=== PATIENT | male | born 2000 | race Caucasian/White ===

== ENCOUNTER 2020-03-26 07:42 | Inpatient (IN) | payer OTHER ==
[2020-03-26 09:04] VITALS: BMI 22.0
[2020-03-26] MEDS ORDERED: Iopamidol-370 76% 500 ML 1 ML ONE (09:07)
[2020-03-26] MEDS ORDERED: Iopamidol 370 76% 50 ML VIAL FS ONE (09:07)
[2020-03-26] MEDS ORDERED: Ondansetron PF 4 MG/2 ML Vial IVP PRN (09:19)
[2020-03-26] MEDS: Fentanyl 100 MCG/2 ML VIAL SLOW IVP PRN ×2 (09:35→10:56)
[2020-03-26] MEDS ORDERED: FLU VACC QS2020-21(6MOS UP)/PF 60 MCG/0.5 ML SYRINGE IM ONE (09:45)
--- NOTE | 2020-03-26 11:29 | HP ---
CHIEF COMPLAINT ON ADMISSION: Acute pancreatitis. HISTORY OF PRESENT ILLNESS: The patient is a 19-year-old male, who was in his usual state of health Thursday, such that he went out and partied apparently hard on Thursday night, but did not drink excessively and he is adamant about that. He woke up Thursday morning; however, having intense mid epigastric pain associated with nausea and vomiting. He vomited numerous times before going to [facility], where he was evaluated with a lipase of 970, noted to have acute pancreatitis. CT scan of his abdomen was done at that time and again confirmed that diagnosis. Dr. Coon was called in to take care of the patient from observation status. IV fluids and pain management were given to the patient overnight. However, he failed to show significant improvement and in fact, his lipase on the day of admission had elevated to over 1600. His pain had increased. His abdominal exam had gone from simply mid epigastric with firmness diffusely to distention with diffuse guarding and pain. He continued to have severe nausea as well and it was evident that he needed to be hospitalized. At this point, he was transferred to [facility] in [place] for pain management, IV fluid resuscitation, GI consultation, and serial re-evaluation. PAST MEDICAL HISTORY: Significant for several fractures in his collarbone, wrist, and toe. He has had no other major hospitalizations. He has had no surgery. Psychiatrically, he has been under some stress and depression. His current medication is Prozac 80 mg a day. SOCIAL HISTORY: He is not . He has never smoked. Drinks socially. Does not use illicit drugs. CURRENT MEDICATIONS: Prozac 80 mg p.o. daily. ALLERGIES: NO KNOWN DRUG ALLERGIES. REVIEW OF SYSTEMS: CONSTITUTION: When I first see him, he was weak and lethargic, but denied fever, chills, or diarrhea. HEENT: Denies sores, ulcers, or drainage from eyes, ears, nose, or throat. CHEST: Denies shortness of breath or cough. CARDIOVASCULAR: He has had some palpitations, but denies chest pain. ABDOMEN: Extreme pain and tender above his navel. The pain radiates into his back. He has had nausea and vomiting, but denies diarrhea. : The patient denies blood in urine or stool or painful defecation. EXTREMITIES: Denies any pain in any of his arms or legs. MUSCULOSKELETAL SYSTEM: He is generally weak; however. SKIN: No new rashes or lesions. NEUROLOGIC: Feel stable without worsening of his anxiety or depression. PHYSICAL EXAMINATION: At the time of admission; VITAL SIGNS: Blood pressure 140/95, pulse 150, and temperature 98.4. Weight 145 pounds. O2 saturation 98 on room air. GENERAL: This is a pale, lethargic, weak, and nauseated male, alert, responsive, and complaining of pain. HEENT: Normocephalic and atraumatic. Pupils are equal, round, and reactive to light. Extraocular muscles are intact. TMs and nares are clear. Pharynx is mildly dry. NECK: Supple. No mass. CHEST: Clear to auscultation. HEART: Regular rate and rhythm. Tachycardic. ABDOMEN: Diffusely tender, worse mid epigastrically. Distention is noted with diminished bowel sounds and guarding. : Deferred. EXTREMITIES: Without clubbing, cyanosis, or edema. Normal range of motion present. Symmetrical muscular tone development noted. SKIN: No new rashes or lesions. He is very pale. NEUROLOGIC: Cranial nerves are intact. Unable to test gait and cerebral function at this time. Sensory exam is grossly intact. Mental status is at baseline and answers questions appropriately and clearly. Thought are logical, goal-directed, and appropriate. LABORATORY DATA: Lab work shows WBCs 9.6, hemoglobin 15.8, hematocrit 44.9, and platelets at 349. LFTs initially showed albumin 41, ALP 72, ALT at 40, amylase at 181, SGOT 68, and GGT initially at 160 and it has come down to 80. UA is completely unremarkable. Lipid panel; cholesterol 172, HDL 76, triglycerides 89, and LDL 78. Lipase initially was 970 and followup lipase greater than 1600. Electrolytes; sodium 139, potassium 3.6, chloride 103, calcium 1.1, glucose 138, and creatinine 0.9. The calcium was from an I-STAT and we will repeat that, normal on the I-STAT is 1.[address] obtained of the abdomen initially showed acute pancreatitis, but otherwise it is unremarkable. There was no fluid collection to suggest a pseudocyst. Ultrasound of the abdomen suggested possible sludge in the gallbladder lumen, but no enlargement of common bile duct or signs of blockage. ASSESSMENT ON ADMISSION: 1. Acute pancreatitis - the etiology possibly due to high-dose Prozac. 2. Dehydration, improving. 3. Major depression. PLAN: The plan will be continued IV fluid resuscitation, pain management with frequent fentanyl, antiemetics such as Zofran. Repeat CAT scan of the abdomen since his condition has worsened since presentation. GI consultation with [facility] and serial re-evaluation. Job ID: [id number]
--- NOTE | 2020-03-26 11:32 | CT ---
CT Abdomen Pelvis W WO con History: Pancreatitis Comparison: None. Findings: Small bilateral pleural effusions. Reflux of contrast into the esophagus. There is vicarious contrast within the gallbladder. Diffuse hepatic steatosis. Aortic contour is nonaneurysmal. Extensive peripancreatic inflammatory stranding with small foci of intraparenchymal nonenhancement co ncerning for necrosis. No peripherally enhancing collection. Adrenal glands are unremarkable. No hydronephrosis. No abnormal enhancing mass of the kidneys. No dilated loops of large or small bowel. The appendix is felt to be visualized and appears normal. No retroperitoneal periaortic adenopathy. No acute osseous abnormality. No pseudoaneurysm is appreciated. No active contrast extravasation. Small adherent thrombus along the anterior splenic vein axial image 60 series 4 measures 8 mm in size and is nonocclusive. There is a second peripheral thrombus also within the splenic vein measuring up to 7 mm in size. No acute sple paras infarction. Impression: 1. Acute pancreatitis with small foci of nonenhancement within the pancreatic parenchyma concerning f or necrosis along with peripancreatic necrosis. 2. Multiple small mural thrombi of the anterior wall splenic vein as described. These are nonocclusiv e. 3. Normal appendix. 4. Diffuse hepatic steatosis. 5. Reflux of enteric contrast within the distal esophagus likely sequelae of reactive gastroparesis.
[2020-03-26] MEDS ORDERED: Fentanyl 100 MCG/2 ML VIAL SLOW IVP SCH (12:15)
[2020-03-26] MEDS ORDERED: diphenhydrAMINE 25 MG CAP PO PRN (12:45)
[2020-03-26] MEDS ORDERED: Promethazine HCl 25 MG/ML VIAL IM PRN (12:45)
[2020-03-26] MEDS ORDERED: Naloxone HCl 0.4 mg/ml Vial IV PRN (12:45)
[2020-03-26] MEDS ORDERED: diphenhydrAMINE 50 MG/ML VIAL IM/IV PRN (12:45)
[2020-03-26] MEDS ORDERED: Zolpidem Tartrate 5 MG TAB PO PRN (12:45)
[2020-03-26] MEDS: fentaNYL Citrate/PF 2,000 MCG in Sodium Chloride 0.9% 60 ML IV PRN (13:18)
[2020-03-26] MEDS: Ketorolac Tromethamine 30 MG/ML VIAL IVP SCH ×2 (13:29→17:18)
[2020-03-26] MEDS ORDERED: Heparin 1,000 UNITS/ML VIAL ONE (14:05)
[2020-03-26 17:31] LABS: Anion Gap 11 mmol/L (10-20); BUN (Urea Nitrogen) 10 mg/dL (8.9-20.6); Calc. Creatinine Clearance 122 mL/min (70-130); Calcium 7.9 mg/dL (7.8-10.44); Carbon Dioxide 25 mmol/L (22-29); Chloride 103 mmol/L (98-107); Estimated GFR-MDRD Greater than 90; Glucose 135 mg/dL (70-105); Magnesium 2.6 mg/dL (1.6-2.6); Potassium 4.3 mmol/L (3.5-5.1); Sodium 135 mmol/L (136-145)
[2020-03-26] MEDS: Sodium Chloride 0.9% 1,000 ML IV SCH ×2 (18:39→21:19)
[2020-03-26] MEDS: Ondansetron PF 4 MG/2 ML Vial IVP PRN (20:30)
--- NOTE | 2020-03-26 22:36 | CON ---
DATE OF CONSULTATION: 03/26/2020 REASON FOR CONSULTATION: Acute pancreatitis. CONSULTING PROVIDER: Corey Coon MD HISTORY OF PRESENT ILLNESS: The patient is a 19-year-old male with past medical history of anxiety and depression, presenting with the complaints of acute onset of mid epigastric abdominal pain. He states that he was in his usual state of health until Thursday evening when he went out with his friends and they consumed an increased amount of alcohol when compared to his normal consumption (normal consumption as one drink every 2 to 3 days). During that evening Thursday night, the patient consumed approximately 4 mixed drinks with no immediate complications afterwards. However, early the next morning, the patient had acute onset of mid epigastric abdominal pain characterized as a severe aching type sensation, would radiate to the generalized abdomen and to his mid back with waxing/waning severity, and reached a severity of 10/10. The pain was worse with increased physical activity/movement, deep inspiration, vomiting, eating or drinking and better with the administration of narcotic pain medications when admitted to the hospital. This increased abdominal pain was also associated with increased nausea, vomiting, hematemesis with blood tinged fluid with repeated retching and increased abdominal distention. However, the patient denied any fevers, chills, melena, hematochezia, dysphagia, or recent weight loss. With the severity of this pain he felt, initially prompted him to seek healthcare assistance at the [facility] where the patient had a CT scan and elevated lipase consistent with the diagnosis of acute pancreatitis. However, after approximately 24 hours of IV fluids, the patient had worsening of his abdominal pain and was ultimately transferred to [facility] for further evaluation. On admission here to the hospital, he had a repeat CT scan, which showed extensive peripancreatic inflammation with small foci of intraparenchymal nonenhancement consistent with necrosis. However, with pain medications he has received here in the hospital and with continued IV fluid administration, he states that he is doing better today, but still has fairly severe abdominal pain. REVIEW OF SYSTEMS: A 10-category review of systems was obtained with all responses negative except for the pertinent positives as listed in HPI. PAST MEDICAL HISTORY: As per HPI. PAST SURGICAL HISTORY: Several clavicular fractures, wrist fracture, toe fracture. SOCIAL HISTORY: Denies any tobacco or illicit drug use, but does drink approximately one drink every 2 to 3 days with increased amounts on the weekends. OUTPATIENT MEDICATIONS: Prozac 80 mg daily. ALLERGIES: NO KNOWN DRUG ALLERGIES. PHYSICAL EXAMINATION: VITAL SIGNS: Temperature 98.2, pulse 126, blood pressure 136/88, respiratory rate 18, saturating 94% on room air. GENERAL: The patient was lying in bed, in no acute distress. Alert and oriented x4. HEENT: Normocephalic, atraumatic. No scleral icterus noted. NECK: Supple. No JVD. CARDIOVASCULAR: Tachycardic rate, but regular rhythm with no discernible murmurs, gallops, or rubs. RESPIRATORY: Clear to auscultation bilaterally with no discernible wheezes or rales. ABDOMEN: Hypoactive bowel sounds. Positive guarding. Mild increased abdominal distention with tenderness to palpation in all abdominal quadrants especially the mid epigastric and periumbilical regions with only light palpation. EXTREMITIES: No cyanosis, clubbing, or edema. LABORATORY DATA: CBC with a white blood cell count of 9.6, hemoglobin 15.8, hematocrit 44.9, platelets 349. Chemistry with a sodium 139, potassium 3.6, chloride 103, creatinine 0.9, glucose 138, AST 68, ALT 40, alkaline phosphatase 72, lipase 1647. IMAGING DATA: CT scan of the abdomen and pelvis was obtained on March 26, 2020, which showed small bilateral pleural effusions as well as the reflux of liquid into the distal esophagus consistent with GERD. Diffuse hepatic steatosis was also seen with extensive peripancreatic inflammation and small foci of intraparenchymal nonenhancement consistent with necrosis. A small adherent thrombus was also seen in the splenic vein, but was not extending into the portal vein or superior mesenteric vein. ASSESSMENT AND PLAN: The patient is a 19-year-old male with past medical history of anxiety/depression, presenting with acute complicated pancreatitis. Acute complicated pancreatitis/severe pancreatitis. The patient is presenting with acute onset of increased mid epigastric abdominal pain characterized as a severe aching type sensation and reaching a severity of 10/10. On initial evaluation at the [facility], he was noted to have imaging findings consistent with pancreatitis in addition to an elevated lipase that was also echoed by both an elevated lipase and a CT scan here. However, the patient does exhibit small areas of focal necrosis within the pancreas concerning for nonresponse to either conservative management or the fluid administration was not aggressive enough in order to infect circulating inflammatory cytokines; however, there was no evidence of infection at this time (usually a later development at around 7 to 10 days). At this time, the most likely etiology for his acute pancreatitis would be the binge drinking episode that he engaged in this Thursday night. Given the fact that his lipid panel is normal and he does not have any elevated LFTs consistent with obstruction or gallstone pancreatitis, medication pancreatitis can also be ruled out given that his only medication is Prozac, which is not known to cause acute pancreatitis and as well as the fact that the medication-induced pancreatitis is extremely rare (less than 5% of cases). RECOMMENDATIONS: 1. Would continue with aggressive IV fluid administration at approximately 200 mL/h for the first 8 hours then decrease to 150 mL/h for the next 16 hours. 2. Pain control per primary team, but I agree with placing the patient on a LIBRARY CIRCULATION ASSISTANT pump. 3. Would consider starting the patient on a clear liquid diet tomorrow if his pain is under control. 4. No anticoagulation is indicated given his splenic vein thrombosis unless it is extending into the portal system or the superior mesenteric vein. 5. If the patient begins to develop fever in the next 24 to 48 hours, it is most likely not because of infected pancreatic necrosis, which is usually seen 7 to 10 days after onset of symptoms. We will continue to follow. Please call with any questions. Job ID: [id number]
[2020-03-27] MEDS: Ketorolac Tromethamine 30 MG/ML VIAL IVP SCH ×5 (00:53→23:05)
[2020-03-27] MEDS: Sodium Chloride 0.9% 1,000 ML IV SCH ×4 (04:10→23:11)
[2020-03-27 05:56] LABS: Mean Corpuscular HGB CONC 33.9 g/dL (32.0-36.0); Mean Corpuscular Hemoglobin 30.8 pg (27.0-31.0); Mean Corpuscular Volume 90.9 fL (78.0-98.0); Mean Platelet Volume 7.9 fL (7.4-10.4); Platelet Count 213 thou/uL (130-400); RBC Distribution Width 12.6 % (11.5-14.5); Red Blood Cell (RBC) Count 4.85 mill/uL (4.70-6.10); White Blood Cell (WBC) Count 13.5 thou/uL (4.8-10.8)
[2020-03-27 06:12] LABS: Anion Gap 12 mmol/L (10-20); BUN (Urea Nitrogen) 11 mg/dL (8.9-20.6); Calc. Creatinine Clearance 133 mL/min (70-130); Calcium 7.6 mg/dL (7.8-10.44); Carbon Dioxide 24 mmol/L (22-29); Chloride 102 mmol/L (98-107); Estimated GFR-MDRD Greater than 90; Glucose 102 mg/dL (70-105); Lipase 959 U/L (8-78); Sodium 134 mmol/L (136-145)
[2020-03-27] MEDS: Ondansetron PF 4 MG/2 ML Vial IVP PRN (06:16)
[2020-03-27 06:56] LABS: Band 32 % (5-11); Lymphocytes 2 % (21-51); MDiff Complete? YES; Monocytes 2 % (0-10); Neutrophil 63 % (42-75); Reactive Lymphocytes 1 % (0-10)
--- NOTE | 2020-03-27 14:05 | PRG ---
DATE OF SERVICE: 03/27/2020 SUBJECTIVE: Jose reports he is very slowly feeling better, but he still has significant constant epigastric pain. He has been taking sips of water and [place] and every time he does the pain gets a lot worse and he gets more nauseated. No vomiting. No bowel movement. OBJECTIVE: VITAL SIGNS: Temperature 98.8, pulse down to 91, blood pressure 113/74, 92% oxygen saturation on room air. GENERAL: Sitting up in chair, in mild distress from abdominal pain. HEART: Regular rate and rhythm. LUNGS: Clear to auscultation bilaterally. ABDOMEN: Bowel sounds absent. Soft. Tenderness to palpation in the epigastrium, but no guarding, rebound tenderness. EXTREMITIES: No peripheral edema. LABORATORY STUDIES: WBC is 13.5, hemoglobin 15.0, hematocrit 44.1, platelets 213. Sodium 134, potassium 4.0, BUN 11, creatinine down to 0.82, glucose 102, amylase down to 307, lipase down to 959. ASSESSMENT/PLAN: 1. Acute pancreatitis secondary to alcohol, with several foci of pancreatic necrosis per CT scan yesterday. 2. Abdominal pain secondary to pancreatitis. I advised the patient that he needs to quit drinking water and [place] and be more strict with his n.p.o. status. Labs are essentially stable from yesterday, but would like to see the hematocrit go down. He has been treated aggressively with intravenous fluid resuscitation over the past day, and would continue with intravenous normal saline at a rate of 150 mL/h for at least the next 24 hours. Pain is better controlled now. 3. Gastrointestinal will continue to follow. Please call anytime with questions or concerns. Job ID: [id number]
[2020-03-27] MEDS: fentaNYL Citrate/PF 2,000 MCG in Sodium Chloride 0.9% 60 ML IV PRN (14:48)
--- NOTE | 2020-03-27 16:44 | RAD ---
XR Chest 1 View Portable History: Necrotic pancreatitis Comparison: None. Findings: Abnormal bilateral pleural effusions and bibasilar atelectasis. No pneumothorax. Heart size is normal. No acute osseous abnormality. Impression: Moderate pleural effusions and bibasilar atelectasis.
[2020-03-28] MEDS: Sodium Chloride 0.9% 1,000 ML IV SCH ×4 (05:17→22:39)
[2020-03-28] MEDS: Ketorolac Tromethamine 30 MG/ML VIAL IVP SCH (05:17)
[2020-03-28 07:14] LABS: Hemoglobin 12.8 g/dL (14.0-18.0); Mean Corpuscular HGB CONC 32.8 g/dL (32.0-36.0); Mean Corpuscular Hemoglobin 30.5 pg (27.0-31.0); Mean Platelet Volume 9.2 fL (7.4-10.4); Platelet Count 209 thou/uL (130-400); RBC Distribution Width 12.7 % (11.5-14.5); Red Blood Cell (RBC) Count 4.19 mill/uL (4.70-6.10); White Blood Cell (WBC) Count 10.2 thou/uL (4.8-10.8)
[2020-03-28 07:25] LABS: Anion Gap 17 mmol/L (10-20); BUN (Urea Nitrogen) 13 mg/dL (8.9-20.6); Calc. Creatinine Clearance 143 mL/min (70-130); Calcium 7.8 mg/dL (7.8-10.44); Carbon Dioxide 19 mmol/L (22-29); Chloride 103 mmol/L (98-107); Estimated GFR-MDRD Greater than 90; Glucose 66 mg/dL (70-105); Lipase 658 U/L (8-78); Sodium 135 mmol/L (136-145)
[2020-03-28 07:47] LABS: Band 28 % (5-11); Eosinophils 1 % (0-10); Lymphocytes 4 % (21-51); MDiff Complete? YES; Monocytes 6 % (0-10); Myelocyte 1 % (0-0); Neutrophil 60 % (42-75); Platelet Morphology Comment Appears Adequate; Polychromasia SLIGHT = 2-3 cells (100X) (0-2/hpf)
[2020-03-28] MEDS: Furosemide 40 MG/4 ML VIAL SLOW IVP SCH ×2 (09:35→10:06)
--- NOTE | 2020-03-28 10:23 | CT ---
CT CHEST WITH CONTRAST CLINICAL INDICATION: Pleural effusion. COMPARISON: CT abdomen obtained from [facility] in [place], [place]. FINDINGS: Aorta: The aorta is normal in caliber without evidence of an aortic dissection. Lungs: Moderately large bilateral pleural effusions are present with consolidation present bilaterall y most likely attributable to passive atelectasis as opposed to pneumonia. The large airways do appear patent. No discrete pulmonary nodule or mass is seen. Mediastinum: Suggestion of mild circumferential wall thickening involving the mid thoracic esophagus. No enlarged lymph nodes are seen by CT size criteria. Thyroid gland: Normal in appearance where imaged. Osseous structures: Multiple scattered Schmorl's nodes in the thoracic and visualized upper lumbar sp ine. No suspicious lytic or sclerotic osseous lesions are identified. Chest wall: No abnormality visualized. Upper abdomen: Peripancreatic inflammatory stranding and fluid with an area of hypoenhancement involv ing the limited portion of the head and neck of the pancreas suggesting pancreatic necrosis. On the coronal reformatted images, there is suggestion of small nonocclusive filling defect within the mid s plenic vein likely due to small amount of thrombus. Increased density is seen within the gallbladder likely related to vicarious excretion of contrast. V isualized liver demonstrates mild diminished enhancement relative to the spleen likely attributable to mild fatty infiltration. Areas of slightly greater increased attenuation are seen within the liver which are likely related to areas of fatty sparing. IMPRESSION: 1. Moderately large bilateral pleural effusions with areas of consolidation present likely attributab le to passive atelectasis. 2. Circumferential wall thickening involving the mid thoracic esophagus which is nonspecific. Follow- up evaluation is recommended. 3. Evidence of pancreatitis with hypoenhancement involving a portion of the pancreas, incompletely im aged, but worrisome for pancreatic necrosis. In addition, there is suggestion of small amount of thrombus within the visualized splenic vein. 4. Fatty infiltration of the liver with presumed areas of fatty sparing.
[2020-03-28] MEDS ORDERED: HYDROmorphone 10 mg/100 ml CADD IVPB PRN (10:30)
--- NOTE | 2020-03-28 11:56 | PQF ---
CLINICAL DOCUMENTATION CLARIFICATION FORM: Dear Dr. Herber Coon Date / Time:03/29/2010 1137, 03/29/20, 0920 Please exercise your independent, professional judgment in responding to the clarification form. Clinical indicators are provided on the bottom of this form for your review. Please check appropriate box(es): [ ] Sepsis due to: Acute Pancreatitis [ x ] Localized infection without sepsis [ ] SIRS due to non-infectious process (please specify etiology) [ ] with organ dysfunction [ ] without organ dysfunction [ ] Other diagnosis [ ] Unable to determine In addition, please specify: Present on Admission (POA): [ x ] Yes [ ] No [ ] Unable to determine For continuity of documentation, please document condition throughout progress notes and discharge summary. Thank You. To be completed by CDI/Coding staff for physician review: CLINICAL INDICATORS - SIGNS / SYMPTOMS / LABS / RESULTS AND LOCATION IN MR Acute Pancreatitis- the etiology possibly due to high-dose Prozac (Coon/H&P) 03/26 Acute Pancreatitis secondary to alcohol, with several foci of pancreatic necrosis per CT scan yesterday ( Case/ PN) 03/27 Pulse o 03/26 (150,126,108) o 03/27 ( 103, 110, 111) WBC 03/27 ( 13.5) Bands 03/27 (32) RISK FACTORS / RESULTS AND LOCATION IN MR Acute Pancreatitis (H&P/ Shaggy) 03/26 TREATMENTS / RESULTS AND LOCATION IN MR 0.9% NS IV Fluids ( 03/26 present) Daily CBC ( 03/27- 03/28) GI consult ( Oanh/ 03/26) CDS Signature: Rosie Gage,BAKARI Phone #:[phone] Date: 03/29/2020 This is a permanent part of the Medical Record [facility]
[2020-03-28] MEDS ORDERED: Iopamidol-370 76% 500 ML 1 ML ONE (14:25)
--- NOTE | 2020-03-28 16:33 | PRG ---
DATE OF SERVICE: 03/28/2020 SUBJECTIVE: Mr. Sales complains of abdominal distention and bloating, but no nausea or vomiting. He still has pain, requiring TRACTOR SWEEPER DRIVER pump. He is wanting liquids by mouth and so far is tolerating some ice chips. He did have a loose bowel movement this morning. OBJECTIVE: VITAL SIGNS: Temperature 98.7, pulse 108, blood pressure 144/88. GENERAL: He is in no acute distress. Alert and oriented x3. LUNGS: Clear to auscultation bilaterally. HEART: Tachycardic. S1, S2. ABDOMEN: Mildly distended and tender in the upper abdomen without guarding. His bowel sounds are present. EXTREMITIES: No lower extremity edema. LABORATORY DATA: White blood cell count 10.2, hemoglobin 12.8, platelets 209. Creatinine 0.76. Lipase 658. IMPRESSION: 1. Acute alcoholic pancreatitis. His hemoglobin is trended down appropriately with rehydration. His primary complaint now is thirst. He also still has pain, requiring TRACTOR SWEEPER DRIVER pump. He had a CT scan of the chest today due to pleural effusion. The effusions are likely secondary to fluid sequestration from the pancreatitis. There were areas in the pancreatic head and neck concerning for pancreatic necrosis with decreased enhancement with contrast. CT also showed a small splenic vein thrombosis and thickening of the esophagus in the mid thoracic esophagus. 2. Alcoholic pancreatitis, which is severe with necrosis by a contrast CT. 3. Small splenic vein thrombosis. 4. Circumferential thickening of the mid thoracic esophagus by CT scan. RECOMMENDATIONS: 1. He will continue ice chips for today. 2. Continue IV fluids. 3. Plan for upper endoscopy tomorrow to assess the esophageal thickening and rule out gastric varices. 4. If no gastric varices are seen by endoscopy, then consider starting Lovenox for the splenic vein thrombosis. Job ID: [id number]
[2020-03-29] MEDS: Sodium Chloride 0.9% 1,000 ML IV SCH ×3 (06:44→17:16)
[2020-03-29 06:56] LABS: Hemoglobin 12.5 g/dL (14.0-18.0); Mean Corpuscular HGB CONC 32.9 g/dL (32.0-36.0); Mean Corpuscular Hemoglobin 30.4 pg (27.0-31.0); Mean Corpuscular Volume 92.5 fL (78.0-98.0); Mean Platelet Volume 7.5 fL (7.4-10.4); Platelet Count 240 thou/uL (130-400); RBC Distribution Width 12.3 % (11.5-14.5); White Blood Cell (WBC) Count 13.3 thou/uL (4.8-10.8)
[2020-03-29 07:05] LABS: Anion Gap 18 mmol/L (10-20); BUN (Urea Nitrogen) 12 mg/dL (8.9-20.6); Calc. Creatinine Clearance 143 mL/min (70-130); Calcium 8.2 mg/dL (7.8-10.44); Carbon Dioxide 20 mmol/L (22-29); Chloride 99 mmol/L (98-107); Estimated GFR-MDRD Greater than 90; Glucose 79 mg/dL (70-105); Lipase 336 U/L (8-78); Potassium 3.2 mmol/L (3.5-5.1); Sodium 134 mmol/L (136-145)
[2020-03-29 08:14] LABS: Band 35 % (5-11); Lymphocytes 5 % (21-51); MDiff Complete? YES; Metamyelocyte 1 % (0-0); Monocytes 6 % (0-10); Neutrophil 53 % (42-75); Platelet Morphology Comment Appears Adequate; Polychromasia SLIGHT = 2-3 cells (100X) (0-2/hpf)
[2020-03-29] MEDS: Ondansetron PF 4 MG/2 ML Vial IVP PRN (09:29)
[2020-03-29] MEDS ORDERED: diphenhydrAMINE 25 MG CAP PO PRN (10:52)
[2020-03-29] MEDS ORDERED: diphenhydrAMINE 50 MG/ML VIAL IM PRN (10:52)
[2020-03-29] MEDS ORDERED: Ondansetron PF 4 MG/2 ML Vial IVP PRN (10:52)
[2020-03-29] MEDS ORDERED: Zolpidem Tartrate 5 MG TAB PO PRN (10:52)
[2020-03-29] MEDS ORDERED: diphenhydrAMINE 50 MG/ML VIAL IVP PRN (10:52)
[2020-03-29] MEDS ORDERED: Promethazine HCl 25 MG/ML VIAL IM PRN (10:52)
[2020-03-29] MEDS ORDERED: Naloxone HCl 0.4 mg/ml Vial IV PRN (10:52)
[2020-03-29] MEDS ORDERED: Communication Order-Pharmacy FS SCH (11:00)
[2020-03-29] MEDS: fentaNYL Citrate/PF 2,000 MCG in Sodium Chloride 0.9% 60 ML IV PRN (11:33)
[2020-03-29] MEDS ORDERED: Furosemide 40 MG/4 ML VIAL SLOW IVP SCH (12:00)
[2020-03-29] MEDS: Albumin 25% 25 GM/100 ML BOT IVPB SCH ×3 (12:44→23:39)
--- NOTE | 2020-03-29 17:15 | PRG ---
DATE OF SERVICE: 03/29/2020 REASON FOR CONSULTATION: Severe acute pancreatitis with necrosis. SUBJECTIVE: Per the anesthesia staff, the patient did exhibit increased hallucinations while on the fentanyl PAYROLL AND BENEFITS MANAGER pump and with transferring the patient to a Dilaudid PAYROLL [employer] BENEFITS MANAGER pump, exhibited worsening of his abdominal pain. In any case, however, on my examination tonight, the patient is currently off the PAYROLL [employer] BENEFITS MANAGER pump altogether and his pain is currently being managed with only oral medications. He states that he continues to have the generalized abdominal pain, but seems to be improving when compared to previous. He also describes significantly increased thirst and has been eating ice chips pretty much all day. His urine output has also improved over the last few hours, stated that he has been able to urinate approximately 60 to 70 mL over the last 1 to 2 hours. Otherwise, he denies any nausea, vomiting, fevers, chills, hematemesis, melena, or hematochezia. OBJECTIVE: VITAL SIGNS: Temperature 98.9, pulse 114, blood pressure 130/89, respiratory rate 20, saturating 98% on 2 L nasal cannula. GENERAL: The patient was lying in bed, in no acute distress. Alert and oriented x4. CARDIOVASCULAR: Tachycardic rate, but regular rhythm. RESPIRATORY: Clear to auscultation bilaterally, but with diminished breath sounds in the bilateral lower lung bases. ABDOMEN: Hypoactive bowel sounds. Moderate guarding with mild increased abdominal distention and tenderness to palpation in all abdominal quadrants, but much improved when compared to prior examination. EXTREMITIES: No cyanosis or clubbing. 1+ edema was noted in the bilateral lower extremities extending to the mid atkinson. LABORATORY DATA: CBC with a white blood cell count of 13.3, hemoglobin 12.5, hematocrit 37.9, and platelets 240. Chemistry with a sodium of 134, potassium 3.2, chloride 99, CO2 of 20, BUN 12, creatinine 0.76, and glucose 79. IMAGING DATA: CT of the chest was obtained on March 28, 2020, which showed moderately large bilateral pleural effusions with consolidation bilaterally, but most likely attributed to passive atelectasis. There was mild circumferential wall thickening of the mid thoracic esophagus, but no enlarged lymph nodes were seen. Peripancreatic inflammatory stranding was also seen with an area of hypoenhancement evolving the limited portion of the head and neck of the pancreas suggesting pancreatic necrosis. Also seen was a small nonocclusive filling defect within the mid splenic vein, likely due to a small amount of thrombus. ASSESSMENT AND PLAN: The patient is a 19-year-old male with past medical history of anxiety and depression, presenting with acute severe complicated pancreatitis. Acute severe complicated pancreatitis: The patient initially presented with acute onset of increased midepigastric abdominal pain with laboratory serologies and imaging consistent with acute pancreatitis. He was resuscitated at an outpatient urgent care center, but continued to have worsening abdominal pain over the next 24 hours prompting transfer to [facility]. During his admission thus far, the patient has responded to IV fluid administration, although seems to be having some element of third spacing, indicative of lower extremity edema, swelling in his abdomen, and bilateral pleural effusions. However, his pain is actually under much better control at this time and his urinary output is picking back up, which were all positive indicators. Recommendations: We would continue with IV fluid administration at 125 mL/h until tolerating a clear liquid diet. We would advance the patient's diet to clear liquid diet and assess for response. Pain control per Primary Team. No anticoagulation is indicated given the splenic vein thrombosis unless it is extending into the portal system or superior mesenteric vein. Abnormal gastrointestinal imaging/thickening of the distal esophagus. The patient also complains of mild substernal chest pain located in the bottom of his chest, near the gastroesophageal junction approximately. On the CT scan of his chest on March 28, that did show some thickening of the distal esophagus, which is concerning for an inflammatory-type process. At this point, the patient does have a longstanding history of acid reflux with gastroesophageal reflux disease being the more likely explanation for the CT exam findings and his mild midepigastric pain. However, other etiologies including inflammation and ulceration cannot be ruled out at this time. Recommendations: We would make the patient n.p.o. at midnight in preparation for EGD tomorrow. We would follow up on the COVID testing prior to the procedure. Further recommendations to follow upper endoscopy. We will continue to follow. Please call with any questions. Job ID: [id number]
[2020-03-29 23:01] LABS: SARS-CoV-2 MS2 Positive; SARS-CoV-2 N Gene Negative; SARS-CoV-2 S Gene Negative; SARS-CoV-2 by NAA Not Detected (NotDetected); SARS-CoV-2 orf1ab Negative
[2020-03-30] MEDS: Sodium Chloride 0.9% 1,000 ML IV SCH ×3 (01:30→23:00)
[2020-03-30] MEDS: Albumin 25% 25 GM/100 ML BOT IVPB SCH (05:09)
[2020-03-30 06:19] LABS: Band 33 % (5-11); Hemoglobin 12.2 g/dL (14.0-18.0); Lymphocytes 11 % (21-51); MDiff Complete? YES; Mean Corpuscular HGB CONC 34.1 g/dL (32.0-36.0); Mean Corpuscular Hemoglobin 30.7 pg (27.0-31.0); Mean Corpuscular Volume 90.3 fL (78.0-98.0); Mean Platelet Volume 6.9 fL (7.4-10.4); Monocytes 13 % (0-10); Neutrophil 43 % (42-75); Platelet Count 286 thou/uL (130-400); Platelet Morphology Comment Appears Adequate; RBC Distribution Width 12.1 % (11.5-14.5); Red Blood Cell (RBC) Count 3.96 mill/uL (4.70-6.10); White Blood Cell (WBC) Count 14.3 thou/uL (4.8-10.8)
[2020-03-30 06:26] LABS: Anion Gap 16 mmol/L (10-20); BUN (Urea Nitrogen) 8 mg/dL (8.9-20.6); Calc. Creatinine Clearance 145 mL/min (70-130); Calcium 8.5 mg/dL (7.8-10.44); Carbon Dioxide 25 mmol/L (22-29); Chloride 97 mmol/L (98-107); Estimated GFR-MDRD Greater than 90; Glucose 138 mg/dL (70-105); Lipase 189 U/L (8-78); Sodium 135 mmol/L (136-145)
[2020-03-30 06:28] LABS: Potassium 2.7 mmol/L (3.5-5.1)
[2020-03-30] MEDS ORDERED: Potassium Chloride 20 MEQ in Premix Bag 1 BAG IVPB SCH (07:45)
[2020-03-30] MEDS ORDERED: Lidocaine 1% PF 5 ML VIAL ONE (10:17)
[2020-03-30] MEDS ORDERED: PROPOFOL 200 MG/20 ML VIAL ONE (10:17)
[2020-03-30] MEDS ORDERED: Promethazine HCl 25 MG/ML VIAL IM PRN (11:51)
[2020-03-30] MEDS ORDERED: Promethazine HCl 25 MG/ML VIAL SLOW IVP PRN (11:51)
[2020-03-30] MEDS ORDERED: Ondansetron HCl/PF 4 MG/2 ML Vial IVP PRN (11:51)
--- NOTE | 2020-03-30 13:48 | OP ---
DATE OF PROCEDURE: 03/30/2020 PROCEDURE PERFORMED: Esophagogastroduodenoscopy (diagnostic). INDICATIONS FOR PROCEDURE: Abnormal GI imaging showing thickening of the distal esophagus on CT, nausea and vomiting. DESCRIPTION OF PROCEDURE: After the risks and benefits of the procedure were explained to the patient including risks of bleeding, infection, perforation, reactions to anesthesia, aspiration, and/or pain, informed consent was obtained. The patient was then taken to the endoscopy suite where he was maneuvered into the left lateral decubitus position followed by introduction of deep sedation via propofol and anesthesia support. Once adequate sedation was achieved, the standard gastroscope was introduced into the mouth with intubation of the esophagus, stomach, and the proximal small intestines with the findings listed below. The patient tolerated the procedure well with no immediate perioperative complications. On conclusion of the procedure, all equipment was removed from the patient and he was transferred to PACU in satisfactory condition. FINDINGS: Esophagus: Normal-appearing mucosa was seen in both the proximal and mid esophagus; however, in the distal esophagus, severe mucosal erythema in addition to scattered ulcerations and mild sloughing of the mucosa itself was seen extending from approximately 34 cm to 40 cm; however, it did not exhibit any evidence of active or recent bleeding and there was no masses or nodularity associated with this inflammation. The diaphragmatic pinch was well seen at 43 cm while the gastroesophageal junction was seen at 40 cm, denoting a 3-cm hiatal hernia, likely contributing to the erosive changes in the esophagus. Otherwise, there was no evidence of mass lesions or active/recent bleeding. Stomach: Normal-appearing mucosa was seen in the gastric cardia, fundus, body, greater curvature, antrum, and incisura. A hiatal hernia was seen on gastric retroflexion. There was no evidence of erosions, ulcerations, mass lesions, or active/recent bleeding. Duodenum: Normal-appearing mucosa was seen in both the duodenal bulb and second portion of the duodenum. There was no evidence of erosions, ulcerations, mass lesions, or active/recent bleeding. IMPRESSION: 1. LA grade D reflux-mediated erosive esophagitis. 2. 3-cm hiatal hernia, likely contributing to #1. RECOMMENDATIONS: 1. Would continue with IV fluid support while advancing the patient's diet. 2. Would place the patient on pantoprazole 40 mg IV b.i.d. 3. Advance the patient's diet to a full liquid diet given no significant increased pain with clear liquid diet yesterday. 4. Pain control per primary team. We will continue to follow. Please call with any questions. Job ID: [id number]
[2020-03-30] MEDS: Pantoprazole 40 MG VIAL IVP SCH (20:46)
[2020-03-30] MEDS: Acetaminophen 325 MG TAB PO PRN (22:30)
[2020-03-30] MEDS ORDERED: Docusate 100 MG CAP PO PRN (22:34)
[2020-03-31 07:40] LABS: Mean Corpuscular HGB CONC 33.9 g/dL (32.0-36.0); Mean Corpuscular Hemoglobin 30.4 pg (27.0-31.0); Mean Corpuscular Volume 89.6 fL (78.0-98.0); Mean Platelet Volume 7.3 fL (7.4-10.4); Platelet Count 297 thou/uL (130-400); RBC Distribution Width 12.2 % (11.5-14.5); Red Blood Cell (RBC) Count 3.95 mill/uL (4.70-6.10); White Blood Cell (WBC) Count 15.5 thou/uL (4.8-10.8)
[2020-03-31 07:42] LABS: Anion Gap 14 mmol/L (10-20); BUN (Urea Nitrogen) 5 mg/dL (8.9-20.6); Calc. Creatinine Clearance 158 mL/min (70-130); Calcium 8.3 mg/dL (7.8-10.44); Carbon Dioxide 25 mmol/L (22-29); Chloride 99 mmol/L (98-107); Estimated GFR-MDRD Greater than 90; Glucose 124 mg/dL (70-105); Sodium 135 mmol/L (136-145)
[2020-03-31 07:50] LABS: Potassium 2.5 mmol/L (3.5-5.1)
[2020-03-31] MEDS: Sodium Chloride 0.9% 1,000 ML IV SCH ×3 (07:52→13:41)
--- NOTE | 2020-03-31 08:11 | ULT ---
Exam: Bilateral renal ultrasound HISTORY: Evaluate for obstruction COMPARISON: None FINDINGS: Right kidney: Normal cortical echotexture. No hydronephrosis. Right kidney measurements: 5.6 x 4.6 x 10.7 cm. Left kidney: Normal cortical echotexture. No hydronephrosis Left kidney measurements 10.3 x 5.3 x 5.1 cm. Urinary bladder: Suboptimal evaluation of the bladder due to Zarate catheter. Incidentals: There is small amount of free fluid in the pelvis IMPRESSION: 1. Small amount of free fluid in the pelvis. 2. No evidence of hydronephrosis.
[2020-03-31 08:52] LABS: Band 13 % (5-11); Lymphocytes 6 % (21-51); MDiff Complete? YES; Monocytes 16 % (0-10); Neutrophil 65 % (42-75); Platelet Morphology Comment Appears Adequate
[2020-03-31] MEDS: Pantoprazole 40 MG VIAL IVP SCH ×2 (08:55→20:17)
[2020-03-31] MEDS ORDERED: Sodium Chloride 0.9% 1,000 ML IV SCH (09:13)
[2020-03-31] MEDS: Potassium Chloride 20 MEQ TAB PO SCH ×3 (10:17→20:38)
--- NOTE | 2020-03-31 12:01 | PRG ---
DATE OF SERVICE: 03/31/2020 REASON FOR CONSULTATION: Acute severe pancreatitis with necrosis. SUBJECTIVE: There were no acute events or problems overnight and there were no postprocedure complications with the EGD performed yesterday. He states that his abdominal pain is slightly better when compared to yesterday, but he does continue to have increased generalized abdominal pain, especially with increased movement. He has been on the BLACKJACK DEALER pump, but has been using it sparingly. He also has been able to tolerate a full-liquid diet without any significant increase in his abdominal pain. Otherwise, he denies any nausea, vomiting, fevers, chills, hematemesis, melena, or hematochezia. OBJECTIVE: VITAL SIGNS: Temperature 98.8, pulse 110, blood pressure 144/94, respiratory rate 20, saturating 92% on 2 L nasal cannula. GENERAL: The patient was lying in bed, in no acute distress. Alert and oriented x4. CARDIOVASCULAR: Tachycardic rate but regular rhythm. RESPIRATORY: Clear to auscultation bilaterally. ABDOMEN: Normoactive bowel sounds. Soft. Mild abdominal distention. Tenderness to palpation in all abdominal quadrants with only deep palpation. EXTREMITIES: No cyanosis or clubbing. 1+ edema was noted in the bilateral lower extremities extending to mid atkinson. LABORATORY DATA: CBC with a white blood cell count of 15.5, hemoglobin 12, hematocrit 35.4, platelets 297. Chemistry with a sodium of 135, potassium 2.5, chloride 99, CO2 of 25, BUN 5, creatinine 0.69, glucose 124. IMAGING DATA: No current GI imaging is available for review. EGD was performed on March 30, 2020, with only findings of LA grade D reflux mediated erosive esophagitis. ASSESSMENT AND PLAN: The patient is a 19-year-old male, with past medical history of anxiety and depression, presenting with acute severe complicated pancreatitis with necrosis. Acute severe complicated pancreatitis. The patient initially presented with acute onset of midepigastric abdominal pain with laboratory serologies and imaging consistent with acute pancreatitis. Over the course of this hospitalization, he has been responding fairly well to IV fluid resuscitation and pain control, albeit his hospital course has been longer than expected presumably due to the presence of pockets of necrosis within the pancreas. At this time, there is nothing to indicate that the pockets of necrosis have become infected and he has been able to tolerate a full-liquid diet without difficulty including increase of his abdominal pain. Recommendations: 1. We would decrease IV fluid administration to 75 mL/h now that the patient is able to tolerate a liquid diet. 2. We would advance the patient's diet to a low-fat diet and assess for response. 3. Pain control per primary team. 4. No anticoagulation is indicated given the splenic vein thrombosis unless that is extending into the portal system or superior mesenteric vein. No additional imaging is indicated at this time given that he has not had any clinical characteristics to suggest extension. Abnormal GI imaging/thickening of the distal esophagus. The patient has a longstanding history of acid reflux with complaints of mild substernal chest pain during the course of this hospitalization. CT scan of the chest on March 28 did show some thickening of the distal esophagus with an EGD performed on March 31 showing the presence of LA grade D reflux esophagitis. Since being placed on PPI b.i.d., he has been doing well in this regard with no problems with the administration. Recommendations: 1. We will continue the patient on pantoprazole 40 mg IV b.i.d. and when ready for discharge, transfer him to an oral formulation for approximately 3 to 4 weeks after, then decrease to 40 mg daily. 2. Continue strict anti-reflux precautions. We will continue to follow. Please call with any questions. Job ID: [id number]
[2020-03-31] MEDS: fentaNYL Citrate/PF 2,000 MCG in Sodium Chloride 0.9% 60 ML IV PRN (13:33)
--- NOTE | 2020-03-31 14:05 | PDOC.HOSPP ---
- Subjective Encounter Date: 03/31/20 Encounter Time: 09:30 Subjective: c/o gen swelling, abd distension and scrotal edema mother at bedside is tolerating liq diet, no fever says he is amb in room - Objective Vital Signs & Weight: Vital Signs (12 hours) Temp Pulse Resp BP BP Pulse Ox 03/31/20 11:07 98.8 F 110 H 20 144/94 H 92 L 03/31/20 07:49 99.0 F 102 H 20 146/90 H 92 L 03/31/20 04:00 98.4 F 95 20 138/89 92 L Weight Weight 145 lb I&O: 03/30/20 03/31/20 04/01/20 06:59 06:59 06:59 Intake Total 3260 Output Total 2300 Balance 960 Result Diagrams: 03/31/20 06:38 03/31/20 06:38 Hospitalist ROS - Medication Medications: Active Medications Generic Name Dose Route Start Last Admin Trade Name Freq PRN Reason Stop Dose Admin Acetaminophen 650 mg 03/30/20 21:48 03/30/20 22:30 Acetaminophen 325 Mg Tab PO 650 mg Q4H PRN Administration Headache/Fever or Pain Fentanyl Citrate 2,000 mcg/ 100 mls @ 0 mls/hr 03/29/20 10:52 03/31/20 13:33 Sodium Chloride IV 100 mls INF PRN Administration Pain As Directed Sodium Chloride 1,000 mls @ 70 mls/hr 03/31/20 09:30 03/31/20 13:41 Normal Saline 0.9% IV 1,000 mls .[id number] BEL Administration Pantoprazole Sodium 40 mg 03/30/20 21:00 03/31/20 08:55 Pantoprazole 40 Mg Vial IVP 40 mg Q12HR BEL Administration Potassium Chloride 40 meq 03/31/20 09:30 03/31/20 10:17 Potassium Chloride 20 Meq Tab PO 04/01/20 03:31 40 meq Q6H BEL Administration Sodium Chloride 10 ml 03/26/20 21:00 03/31/20 08:46 Flush - Normal Saline 10 Ml Syringe IVF Not Given Q12HR BEL - Exam General Appearance: awake alert, ill appearing Eye: PERRL, anicteric sclera ENT: no oropharyngeal lesions, moist mucosa Neck: supple, no JVD Heart: RRR, no murmur Respiratory: no wheezes, no rales Gastrointestinal: soft, normal bowel sounds, distended Extremities: no cyanosis, 1+ LE edema Neurological: cranial nerve grossly intact, no focal deficits Psychiatric: normal affect, A&O x 3 Hosp A/P (1) Acute pancreatitis with uninfected necrosis Code(s): K85.91 - ACUTE PANCREATITIS WITH UNINFECTED NECROSIS, UNSPECIFIED Status: Acute Qualifiers: Pancreatitis type: unspecified pancreatitis type Qualified Code(s): K85.91 - Acute pancreatitis with uninfected necrosis, unspecified (2) Reflux esophagitis Code(s): K21.00 - GASTRO-ESOPHAGEAL REFLUX DIS WITH ESOPHAGITIS, WITHOUT BLEED Status: Chronic Qualifiers: Esophagitis bleeding: without hemorrhage Qualified Code(s): K21.00 - Gastro-esophageal reflux disease with esophagitis, without bleeding - Plan is tolerating liq diet has third spacing, reduce iv fluids, will add lasix if needed/gets worse has gallegos place last night due to small vol of urine and urge to pass egd results done of 03/30 noted is on protonix q12h, fentanyl prn, iv fluids encouraged to amb as tolerated in hallway and exercise on bed d/w patient and mother at bedside
[2020-04-01] MEDS: Acetaminophen 325 MG TAB PO PRN ×3 (02:01→22:04)
[2020-04-01] MEDS: Sodium Chloride 0.9% 1,000 ML IV SCH ×3 (02:02→15:24)
[2020-04-01] MEDS: Potassium Chloride 20 MEQ TAB PO SCH (02:15)
[2020-04-01 06:36] LABS: Hemoglobin 11.6 g/dL (14.0-18.0); Mean Corpuscular HGB CONC 33.7 g/dL (32.0-36.0); Mean Corpuscular Hemoglobin 30.2 pg (27.0-31.0); Mean Corpuscular Volume 89.6 fL (78.0-98.0); Mean Platelet Volume 7.1 fL (7.4-10.4); Platelet Count 349 thou/uL (130-400); RBC Distribution Width 12.4 % (11.5-14.5); Red Blood Cell (RBC) Count 3.83 mill/uL (4.70-6.10); White Blood Cell (WBC) Count 19.8 thou/uL (4.8-10.8)
[2020-04-01 06:37] LABS: Band 31 % (5-11); Lymphocytes 4 % (21-51); MDiff Complete? YES; Metamyelocyte 3 % (0-0); Monocytes 8 % (0-10); Myelocyte 1 % (0-0); Neutrophil 53 % (42-75); Platelet Morphology Comment Appears Adequate
[2020-04-01 06:41] LABS: ALT (SGPT) 12 U/L (8-55); AST (SGOT) 23 U/L (5-34); Albumin 3.1 g/dL (3.5-5.0); Alkaline Phosphatase 82 U/L (40-110); Anion Gap 13 mmol/L (10-20); BUN (Urea Nitrogen) 6 mg/dL (8.9-20.6); Calc. Creatinine Clearance 162 mL/min (70-130); Calcium 8.6 mg/dL (7.8-10.44); Carbon Dioxide 26 mmol/L (22-29); Chloride 102 mmol/L (98-107); Estimated GFR-MDRD Greater than 90; Globulin 2.5 g/dL (2.4-3.5); Glucose 97 mg/dL (70-105); Potassium 3.1 mmol/L (3.5-5.1); Protein, Total 5.6 g/dL (6.0-8.3); Sodium 138 mmol/L (136-145)
[2020-04-01] MEDS: Pantoprazole 40 MG VIAL IVP SCH ×2 (08:31→20:18)
--- NOTE | 2020-04-01 09:22 | RAD ---
Exam: Chest one view HISTORY:Necrotic pancreatitis. Follow-up pleural effusion. Comparison: 03/27/2020 FINDINGS: Cardiac silhouette: Normal Aorta: Unremarkable Pulmonary vessels: Normal Costophrenic angles: Slight increase left-sided pleural effusion. Stable small right-sided effusion. LUNGS: Worsening opacification of the lung bases likely representing atelectasis secondary to increas ed effusion. Pneumothorax: None Osseous abnormalities: None IMPRESSION: Worsening left-sided effusion with increased opacification of the left lung base likely r epresenting atelectasis secondary to increased pleural effusion. Continued surveillance is recommended.
[2020-04-01] MEDS ORDERED: Furosemide 40 MG/4 ML VIAL SLOW IVP SCH (10:00)
[2020-04-01] MEDS: Furosemide 40 MG/4 ML VIAL SLOW IVP SCH (13:08)
--- NOTE | 2020-04-01 14:17 | PDOC.HOSPP ---
- Subjective Encounter Date: 04/01/20 Encounter Time: 09:35 Subjective: still has abd pain not related to eating no nausea has edema of abd/groin and lower extre is on nasal canula - Objective Vital Signs & Weight: Vital Signs (12 hours) Temp Pulse Resp BP BP Pulse Ox 04/01/20 12:00 98.9 F 101 H 20 147/92 H 96 04/01/20 07:57 98.4 F 91 20 149/103 H 99 04/01/20 04:00 98.4 F 92 18 136/98 H 96 Weight Weight 145 lb I&O: 03/31/20 04/01/20 04/02/20 06:59 06:59 06:59 Intake Total 2760 Output Total 4100 Balance -1340 Result Diagrams: 04/01/20 05:43 04/01/20 05:42 Hospitalist ROS - Medication Medications: Active Medications Generic Name Dose Route Start Last Admin Trade Name Freq PRN Reason Stop Dose Admin Acetaminophen 650 mg 03/30/20 21:48 04/01/20 02:01 Acetaminophen 325 Mg Tab PO 650 mg Q4H PRN Administration Headache/Fever or Pain Furosemide 40 mg 04/01/20 14:00 04/01/20 13:08 Furosemide 40 Mg/4 Ml Vial SLOW IVP 40 mg 0600,1400 BEL Administration Fentanyl Citrate 2,000 mcg/ 100 mls @ 0 mls/hr 03/29/20 10:52 03/31/20 13:33 Sodium Chloride IV 100 mls INF PRN Administration Pain As Directed Sodium Chloride 1,000 mls @ 70 mls/hr 03/31/20 09:30 04/01/20 13:04 Normal Saline 0.9% IV Not Given .[id number] BEL Pantoprazole Sodium 40 mg 03/30/20 21:00 04/01/20 08:31 Pantoprazole 40 Mg Vial IVP 40 mg Q12HR BEL Administration Sodium Chloride 10 ml 03/26/20 21:00 04/01/20 08:31 Flush - Normal Saline 10 Ml Syringe IVF Not Given Q12HR BEL - Exam General Appearance: awake alert Eye: PERRL, anicteric sclera ENT: no oropharyngeal lesions, moist mucosa Neck: supple, no JVD Heart: RRR, no murmur Respiratory: no wheezes, rales Gastrointestinal: soft, normal bowel sounds, distended Extremities: no cyanosis, 1+ LE edema Skin: normal turgor, no rashes Neurological: cranial nerve grossly intact, no focal deficits Psychiatric: normal affect, A&O x 3 Hosp A/P (1) Acute pancreatitis with uninfected necrosis Code(s): K85.91 - ACUTE PANCREATITIS WITH UNINFECTED NECROSIS, UNSPECIFIED Status: Acute Qualifiers: Pancreatitis type: unspecified pancreatitis type Qualified Code(s): K85.91 - Acute pancreatitis with uninfected necrosis, unspecified (2) Reflux esophagitis Code(s): K21.00 - GASTRO-ESOPHAGEAL REFLUX DIS WITH ESOPHAGITIS, WITHOUT BLEED Status: Chronic Qualifiers: Esophagitis bleeding: without hemorrhage Qualified Code(s): K21.00 - Gastro-esophageal reflux disease with esophagitis, without bleeding (3) Anasarca Code(s): R60.1 - GENERALIZED EDEMA Status: Acute - Plan is tolerating liq diet has third spacing, reduce iv fluids, lasix iv, cxr shows effusions are increasing (worse on left) has gallegos placed due to small vol of urine and urge to pass on 03/31 egd results done of 03/30 noted is on protonix q12h, fentanyl prn, iv fluids encouraged to amb as tolerated in hallway and exercise on bed d/w patient and mother at bedside
[2020-04-01] MEDS ORDERED: MEROPENEM 1 GM/50 ML 1 GM in Premix Bag 1 BAG IVPB SCH (14:45)
[2020-04-01] MEDS ORDERED: Iopamidol-370 76% 500 ML 1 ML ONE (16:08)
[2020-04-01] MEDS ORDERED: Potassium Chloride 20 MEQ TAB PO SCH (17:00)
--- NOTE | 2020-04-01 18:08 | PRG ---
DATE OF SERVICE: REASON FOR CONSULTATION: Acute severe pancreatitis with necrosis. SUBJECTIVE: The patient has now been able to tolerate a low-fat diet (albeit only minimal amounts of food) without any significant increase in his abdominal pain. However, he does continue to complain of increased abdominal swelling and now has significant increased scrotal swelling. He does continue to have generalized abdominal pain and has been using the fentanyl JEWELRY ENGRAVER roughly every 30 minutes when awake. Otherwise, he denies any nausea, vomiting, fevers, chills, hematemesis, melena, or hematochezia. OBJECTIVE: VITAL SIGNS: Temperature 100.4, pulse 121, blood pressure 154/96, respiratory rate 20, and saturating 94% on room air. GENERAL: The patient is lying in bed, in no acute distress. Alert and oriented x4. CARDIOVASCULAR: Tachycardic rate but regular rhythm. RESPIRATORY: Clear to auscultation bilaterally with diminished breath sounds in the bilateral lower lung bases. ABDOMEN: Normoactive bowel sounds. Soft. Mild abdominal distention. Tenderness to palpation in all abdominal quadrants, only with deep palpation. EXTREMITIES: No cyanosis or clubbing. 1+ edema was noted in the bilateral lower extremities extending to mid atkinson. LABORATORY DATA: CBC with a white blood cell count of 19.8, hemoglobin 11.1, hematocrit 34.4, and platelets 349. Chemistry with a sodium of 138, potassium 3.1, chloride 102, CO2 of 26, BUN 6, creatinine 0.67, glucose 97, AST 23, ALT 12, alkaline phosphatase 82, total bilirubin 1.0, albumin 3.1. IMAGING DATA: Chest x-ray was obtained on April 01, 2020, which showed a slight increase in the left-sided pleural effusion, but stable small right-sided effusion, most likely secondary to atelectasis. ASSESSMENT AND PLAN: The patient is a 19-year-old male, with past medical history of anxiety and depression, presenting with acute severe complicated pancreatitis with necrosis. Acute severe complicated pancreatitis. The patient initially presented with acute onset of midepigastric abdominal pain with laboratory serologies and imaging consistent with acute pancreatitis. Over the course of the hospitalization, the patient did respond initially well to aggressive IV fluid resuscitation, which has now been down titrated and ultimately stopped earlier today. He does have some evidence of hypervolemia, but with intermittent doses of furosemide, has been able to have increased urinary output. However, the patient does have an increasing white blood cell count today, continued bandemia in addition to now fever concerning for the presence of infected pancreatic necrosis. RECOMMENDATIONS: 1. We stop the IV fluids altogether. 2. Continue low-fat diet. 3. Pain control per primary team. 4. We would obtain a CT scan of the abdomen/pelvis for determination of possible infected pancreatic necrosis. If evidence of infected pancreatic necrosis is there on CT, he will need an FNA of the necrotic site for further tailoring of antibiotics and placement on meropenem in the meantime. 5. Abnormal GI imaging/thickening of the distal esophagus. The patient has a longstanding history of acid reflux with EGD performed during this admission showing LA grade D reflux esophagitis. Since being placed on PPI b.i.d., has been doing better. Recommendations;. a. Continue pantoprazole 40 mg IV b.i.d. and when ready for discharge, transfer him to an oral formulation twice daily for 3 to 4 weeks after until seen in GI clinic. b. Continue strict antireflux precautions. We will continue to follow. Please call with any questions. Job ID: [id number]
--- NOTE | 2020-04-01 20:47 | CT ---
CT Abdomen Pelvis W Con: 04/01/2020 8:26 PM CLINICAL INFORMATION: Rising white blood cell count and pancreatitis COMPARISON: 03/28/2020 TECHNIQUE: Multiple contiguous axial images were obtained and a CT of the abdomen and pelvis with IV contrast. Oral contrast was administered. Coronal and sagittal reformats were performed. FINDINGS: Lower Chest: Bilateral pleural effusions with adjacent atelectasis, left greater than right. Abdomen: Liver: within normal limits. Bile Ducts: Normal caliber. Gallbladder: Dependent hyperdensity could represent stones or sludge. Pancreas: Diffuse stranding changes are seen surrounding the pancreas consistent with acute pancreati tis. There is a 2.5 cm fluid collection along the neck of the pancreas which may represent a developing pseudocyst. Normal enhancement of the pancreatic parenchyma is seen. There is questionable hypodensity in the splenic vein which could represent a nonocclusive thrombus. The splenic artery is unremarkable. Spleen: within normal limits. Adrenals: within normal limits. Kidneys: within normal limits. Pelvis: Reproductive Organs: No pelvic masses. Ureters: within normal limits. Bladder: Decompressed by a Zarate catheter. Peritoneum: No free air. Moderate free fluid is seen in the pelvis. Bowel: Normal caliber. There is thickening of the wall of the colon in the splenic flexure secondary to the pancreatic inflammation. Mesentery and Retroperitoneum: No enlarged mesenteric or retroperitoneal lymph nodes. Aorta: Normal. Abdominal Wall: within normal limits. Scrotal edema is seen. Bones: Within normal limits IMPRESSION: 1. Acute pancreatitis with a likely developing pseudocyst along the pancreatic neck. 2. Bilateral pleural effusions with adjacent atelectasis. 3. Hyperdensity in the gallbladder may represent stones, sludge, or previous contrast. 4. Questionable nonocclusive thrombus in the splenic vein
[2020-04-01] MEDS: MEROPENEM 1 GM/50 ML 1 GM in Premix Bag 1 BAG IVPB SCH (22:00)
[2020-04-02] MEDS: MEROPENEM 1 GM/50 ML 1 GM in Premix Bag 1 BAG IVPB SCH ×3 (05:58→21:58)
[2020-04-02] MEDS: Furosemide 40 MG/4 ML VIAL SLOW IVP SCH ×2 (06:00→13:49)
[2020-04-02] MEDS: fentaNYL Citrate/PF 2,000 MCG in Sodium Chloride 0.9% 60 ML IV PRN (06:26)
[2020-04-02 06:27] LABS: Band 39 % (5-11); Hemoglobin 12.4 g/dL (14.0-18.0); Hypochromia SLIGHT = 6-15 cells (100X) (0-5/hpf); Lymphocytes 11 % (21-51); MDiff Complete? YES; Mean Corpuscular HGB CONC 32.8 g/dL (32.0-36.0); Mean Corpuscular Hemoglobin 29.3 pg (27.0-31.0); Mean Corpuscular Volume 89.5 fL (78.0-98.0); Mean Platelet Volume 6.8 fL (7.4-10.4); Monocytes 4 % (0-10); Neutrophil 46 % (42-75); Platelet Count 409 thou/uL (130-400); Platelet Morphology Comment Appears Adequate; RBC Distribution Width 12.5 % (11.5-14.5); Red Blood Cell (RBC) Count 4.24 mill/uL (4.70-6.10)
[2020-04-02 06:31] LABS: ALT (SGPT) 9 U/L (8-55); AST (SGOT) 19 U/L (5-34); Alkaline Phosphatase 77 U/L (40-110); Anion Gap 13 mmol/L (10-20); BUN (Urea Nitrogen) 7 mg/dL (8.9-20.6); Bilirubin, Total 1.1 mg/dL (0.2-1.2); Calc. Creatinine Clearance 143 mL/min (70-130); Calcium 8.7 mg/dL (7.8-10.44); Carbon Dioxide 33 mmol/L (22-29); Chloride 94 mmol/L (98-107); Estimated GFR-MDRD Greater than 90; Globulin 2.6 g/dL (2.4-3.5); Glucose 108 mg/dL (70-105); Protein, Total 5.6 g/dL (6.0-8.3); Sodium 137 mmol/L (136-145)
[2020-04-02 06:35] LABS: Potassium 2.7 mmol/L (3.5-5.1)
[2020-04-02] MEDS: Potassium Chloride 20 MEQ TAB PO SCH ×3 (08:39→18:46)
[2020-04-02] MEDS: Pantoprazole 40 MG VIAL IVP SCH ×2 (08:40→21:57)
[2020-04-02] MEDS ORDERED: HYDROcodone/Acetaminophen 10/325 mg Tablet PO PRN (10:14)
--- NOTE | 2020-04-02 10:21 | PRG ---
DATE OF SERVICE: 04/02/2020 REASON FOR CONSULTATION: Severe pancreatitis with necrosis. SUBJECTIVE: Overnight, the patient did have a fever of approximately 100.4, for which the patient underwent CT scan and was placed on meropenem. This morning, he states that he did have some increased abdominal discomfort with the administration of the oral contrast, but is otherwise doing well. He has been able to tolerate both solids and liquids (albeit small amounts) without any significant increase in his abdominal pain. He has also been able to tolerate meropenem without any difficulties or reactions. 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 OBJECTIVE: VITAL SIGNS: Temperature 98.3, pulse 104, blood pressure 131/82, respiratory rate 16, saturating 91% on room air. GENERAL: The patient was lying in bed, in no acute distress. Alert and oriented x4. CARDIOVASCULAR: Tachycardic rate, but regular rhythm. RESPIRATORY: Clear to auscultation bilaterally in the upper lung jackson, but diminished breath sounds in the bilateral lower lung bases. ABDOMEN: Normoactive bowel sounds. Soft. Mild abdominal distention. Tenderness to palpation in all abdominal quadrants, but only with deep palpation. EXTREMITIES: No cyanosis or clubbing. 1+ edema was noted in the bilateral lower extremities extending to mid atkinson. Output, the patient has had approximately 3.5 L of urine output already today. LABORATORY DATA: CBC with a white blood cell count of 22, hemoglobin 12.4, hematocrit 38, platelets 409. Chemistry with a sodium of 137, potassium 2.7, chloride 94, CO2 of 33, BUN 7, creatinine 0.76, glucose 108, AST 19, ALT 9, alkaline phosphatase 77, total bilirubin 1.1. IMAGING DATA: CT scan of the abdomen and pelvis was obtained on April 01, 2020, which showed continued hyperdensity within the gallbladder representing stones or sludge. The pancreas continue to show diffuse stranding changes surrounding the pancreas consistent with acute pancreatitis. However, there was a 2.5 cm fluid collection along the neck of the pancreas with no stated evidence of air or necrosis that may represent a developing pseudocyst. Normal enhancement of the remainder of the pancreatic parenchyma was seen. There was a questionable within the splenic vein that could represent a nonocclusive thrombus. Otherwise, the splenic artery was unremarkable. The spleen was within normal limits. There was a moderate amount of free fluid seen within the pelvis as well as thickening of the wall of the colon at the splenic flexure secondary to the pancreatic inflammation in that region, but there were no enlarged mesenteric or retroperitoneal lymph nodes. ASSESSMENT AND PLAN: The patient is a 19-year-old male with past medical history of anxiety and depression, presenting with severe acute complicated pancreatitis with necrosis and possible pseudocyst formation with the high likelihood of infection. Severe acute complicated pancreatitis. The patient initially presented with acute onset of midepigastric abdominal pain with laboratory serologies and imaging consistent with acute pancreatitis. Over the course of the hospitalization, the patient did initially respond well to aggressive IV fluid resuscitation, but did experience some third spacing of fluid with increased abdominal distention and lower extremity edema with pleural effusions. IV fluids have since been stopped and the patient is now tolerating a low-fat diet without any difficulty or increase in his abdominal pain. However, he has been having a slight increase in his white blood cell count over the last 12 to 24 hours in addition to a fever of 100.4 strongly concerning for the presence of infected pancreatic necrosis. Again with continued increased white blood cell count today and bandemia, it is strongly suggestive of this particular diagnosis, for which the patient was placed on meropenem as part of antibiotic treatment. With a 2.5 cm fluid collection seen on CT, it seems more consistent with a pseudocyst, but CT scan with fine-needle aspiration at this time will most likely yield sterile fluid, especially since antibiotics were started yesterday and the patient will ultimately need long-term antibiotics with meropenem for at least the next 3 weeks. Recommendations; 1. We will continue to encourage oral intake of fluids and food with a low-fat diet. 2. 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 3. We would hold on doing the FNA for now given placement on meropenem and will likely need meropenem administration for the next 3 weeks. As such, the patient will need a PICC line for administration in the outpatient setting. Gastroesophageal reflux disease. The patient has a longstanding history of acid reflux with EGD performed during this admission showing LA grade D reflux esophagitis. Since being placed on acid suppression therapy, he has been doing well. Recommendations; 1. Continue pantoprazole 40 mg IV b.i.d., and when ready for discharge, transfer him to an oral formulation twice daily for 3 to 4 weeks until seen in the GI Clinic. 2. Continue strict anti-reflux precautions. We will continue to follow. Please call with any questions. Job ID: [id number]
[2020-04-02] MEDS: HYDROcodone/Acetaminophen 10/325 mg Tablet PO PRN ×3 (11:37→18:46)
[2020-04-02] MEDS: traMADol HCl 50 MG TAB PO PRN (13:50)
[2020-04-02] MEDS: Fentanyl 100 MCG/2 ML VIAL SLOW IVP PRN (21:56)
[2020-04-03] MEDS: Potassium Chloride 20 MEQ TAB PO SCH ×6 (01:00→21:01)
[2020-04-03] MEDS: Furosemide 40 MG/4 ML VIAL SLOW IVP SCH (05:58)
[2020-04-03] MEDS: MEROPENEM 1 GM/50 ML 1 GM in Premix Bag 1 BAG IVPB SCH ×3 (05:58→21:08)
[2020-04-03 06:32] LABS: ALT (SGPT) 20 U/L (8-55); AST (SGOT) 55 U/L (5-34); Alkaline Phosphatase 157 U/L (40-110); Anion Gap 14 mmol/L (10-20); BUN (Urea Nitrogen) 10 mg/dL (8.9-20.6); Calc. Creatinine Clearance 153 mL/min (70-130); Calcium 8.6 mg/dL (7.8-10.44); Carbon Dioxide 29 mmol/L (22-29); Chloride 94 mmol/L (98-107); Estimated GFR-MDRD Greater than 90; Globulin 2.6 g/dL (2.4-3.5); Glucose 145 mg/dL (70-105); Potassium 3.4 mmol/L (3.5-5.1); Protein, Total 5.6 g/dL (6.0-8.3); Sodium 134 mmol/L (136-145)
[2020-04-03 06:48] LABS: Band 11 % (5-11); Eosinophils 2 % (0-10); Hemoglobin 12.6 g/dL (14.0-18.0); Lymphocytes 5 % (21-51); MDiff Complete? YES; Mean Corpuscular HGB CONC 32.4 g/dL (32.0-36.0); Mean Corpuscular Volume 89.4 fL (78.0-98.0); Mean Platelet Volume 7.5 fL (7.4-10.4); Metamyelocyte 1 % (0-0); Monocytes 5 % (0-10); Neutrophil 76 % (42-75); Platelet Count 476 thou/uL (130-400); Platelet Morphology Comment Appears Increased; RBC Distribution Width 12.7 % (11.5-14.5); Red Blood Cell (RBC) Count 4.36 mill/uL (4.70-6.10); White Blood Cell (WBC) Count 21.3 thou/uL (4.8-10.8)
[2020-04-03] MEDS: Fentanyl 100 MCG/2 ML VIAL SLOW IVP PRN ×2 (07:55→14:46)
[2020-04-03] MEDS: Pantoprazole 40 MG VIAL IVP SCH ×2 (07:57→21:01)
[2020-04-03] MEDS: HYDROcodone/Acetaminophen 10/325 mg Tablet PO PRN ×3 (11:41→23:00)
--- NOTE | 2020-04-03 11:42 | RAD ---
PA AND LATERAL CHEST: Date: 04/03/2020 INDICATION: Pancreatitis. Comparison made to portable chest of 04/01/2020. FINDINGS: Moderate size left pleural effusion is again seen, but appears slightly smaller than on 04/01/2020. S mall right effusion abuts the right CP angle. The lungs are otherwise clear. Heart and mediastinum unremarkable. PICC line via the left upper extre mity overlies the SVC. IMPRESSION: Bilateral effusions, larger on the left. POS: AGW
--- NOTE | 2020-04-03 11:58 | SPC ---
SPC CVP LINE PICC INITAL >5 History: Need for long-term IV access Comparison: None. Findings: Patient was brought to the specials suite. All questions were answered. Informed consent ob tained. Timeout performed. After adequate local anesthesia with lidocaine, the left basilic vein was accessed using ultrasound g uidance. Over a wire and through a peel-away sheath using fluoroscopic guidance a PICC was placed with tip at the mid-inferior SVC. Patient tolerated the procedure well without complication. Impression: Technically successful ultrasound and fluoroscopic guided PICC placement.
[2020-04-04] MEDS: HYDROcodone/Acetaminophen 10/325 mg Tablet PO PRN ×2 (04:00→08:56)
--- NOTE | 2020-04-04 04:35 | PRG ---
DATE OF SERVICE: 04/03/2020 SUBJECTIVE: Mr. Sales has persistent pain in his abdomen diffusely. It is not terrible. He is not using narcotic pain medicines now. He is tolerating a little bit of a low-fat diet, but has early satiety. He states he thinks he may be going home tomorrow They are going to send him home with some IV antibiotics. OBJECTIVE: VITAL SIGNS: Temperature is 97.5, pulse 66, blood pressure 115/64. Urine output about a L a day. He is pale. LUNGS: Clear. HEART: Regular without clicks or murmurs. ABDOMEN: Protuberant. There is anasarca. BACK: No evidence of bruising. EXTREMITIES: Trace edema. SKIN: No rash or lesions. LABORATORY DATA: White count 21,300, and 22 yesterday; hemoglobin 12; platelet count 476, it is up from 409 yesterday and 297 on the 14th; 76% neutrophils potassium 3.4, BUN and creatinine 10 and 0.7, AST and ALT are 55 and 20, bilirubin is 1, alkaline phosphatase 157. Blood cultures negative at 48 hours. PICC line placed today. ASSESSMENT: 1. Necrotizing pancreatitis noted on followup CT scan on 04/01. There is some dependency in the gallbladder. There is no evidence of necrosis of pancreas on most recent CT 04/01 but there was at admission. . There is a diffuse stranding throughout the pancreas consistent with acute pancreatitis and 2.5 cm fluid collection on the neck of the pancreas which could represent developing pseudocyst there is hypodensity in the splenic vein, which could represent nonocclusive thrombus in the splenic artery per Radiology. 2. Severe alcoholic pancreatitis, possible nonocclusive thrombus of the splenic vein. I would not intervene at this time. I agree this is not the vein, There also seems to be a small pseudocyst felt at the neck of the pancreas. RECOMMENDATIONS: Continue present medicines. I have equivocal feelings about continuing the antibiotics. The pseudocyst likely at this point in time is sterile. Leukocytosis is likely related to his severe pancreatitis. If the patient cannot tolerate fluids, he may ultimately need enteral feeding supplementation. He does have a large phlegmon along the greater curve of the stomach. He also has a large pleural effusion on the left lung. Hopefully, some of this fluid will resolve with resolution of 3rd spacing and improvement. I do not think he is ready to go home. for the day or two. Job ID: [id number] [facility]
[2020-04-04] MEDS: Potassium Chloride 20 MEQ TAB PO SCH ×5 (05:26→20:20)
[2020-04-04] MEDS: MEROPENEM 1 GM/50 ML 1 GM in Premix Bag 1 BAG IVPB SCH ×2 (05:27→14:30)
[2020-04-04 06:51] LABS: Hemoglobin 12.7 g/dL (14.0-18.0); Mean Corpuscular Hemoglobin 29.8 pg (27.0-31.0); Mean Corpuscular Volume 90.3 fL (78.0-98.0); Mean Platelet Volume 7.3 fL (7.4-10.4); Platelet Count 505 thou/uL (130-400); RBC Distribution Width 12.6 % (11.5-14.5); Red Blood Cell (RBC) Count 4.27 mill/uL (4.70-6.10); White Blood Cell (WBC) Count 22.7 thou/uL (4.8-10.8)
[2020-04-04 07:08] LABS: ALT (SGPT) 15 U/L (8-55); AST (SGOT) 34 U/L (5-34); Albumin 3.1 g/dL (3.5-5.0); Alkaline Phosphatase 131 U/L (40-110); Anion Gap 15 mmol/L (10-20); BUN (Urea Nitrogen) 9 mg/dL (8.9-20.6); Calc. Creatinine Clearance 153 mL/min (70-130); Carbon Dioxide 27 mmol/L (22-29); Chloride 97 mmol/L (98-107); Estimated GFR-MDRD Greater than 90; Globulin 2.8 g/dL (2.4-3.5); Glucose 95 mg/dL (70-105); Potassium 4.5 mmol/L (3.5-5.1); Protein, Total 5.9 g/dL (6.0-8.3); Sodium 134 mmol/L (136-145)
[2020-04-04 07:55] LABS: Band 17 % (5-11); Eosinophils 4 % (0-10); Lymphocytes 3 % (21-51); MDiff Complete? YES; Metamyelocyte 1 % (0-0); Monocytes 7 % (0-10); Neutrophil 64 % (42-75); Platelet Morphology Comment Appears Increased; Polychromasia SLIGHT = 2-3 cells (100X) (0-2/hpf); Reactive Lymphocytes 4 % (0-10)
[2020-04-04] MEDS: Pantoprazole 40 MG VIAL IVP SCH ×2 (08:49→20:20)
[2020-04-04] MEDS: Furosemide 40 MG/4 ML VIAL SLOW IVP SCH (08:49)
[2020-04-04] MEDS ORDERED: Citalopram 20 MG TAB PO SCH (09:30)
--- NOTE | 2020-04-04 13:08 | CON ---
DATE OF CONSULTATION: HISTORY OF PRESENT ILLNESS: Jose Sales is a 19-year-old gentleman who has been in the hospital here now for almost 10 days. We have been consulted today regarding x-ray which shows increasing pleural effusion. He states he is relatively asymptomatic. Nonsmoker. He said he drinks 4 mixed drinks off and on, but said he is not an alcoholic. He has a history of anxiety and depression. His CT scan showed necrotizing pancreatitis. PAST MEDICAL HISTORY: Unremarkable for any history of diabetes, hypertension. PREVIOUS SURGERIES: Clavicle fracture, wrist fracture, toe fractures. SOCIAL HISTORY: Tobacco, none. Drugs, none. CHRONIC MEDICATIONS: None. Apparently he has Prozac 80 mg in his list. ALLERGIES: NONE. SOCIAL HISTORY: Goes to school at [employer]. PHYSICAL EXAMINATION: VITAL SIGNS: Temperature 97, pulse 80, respiratory rate 16, saturations 90% on room air, blood pressure 130/83. GENERAL: He appears to be in no acute distress. CHEST: Decreased breath sounds, left lower one-third. Right lung unremarkable. CARDIAC: Normal S1, S2. No gallops. ABDOMEN: No masses. LABORATORY DATA: White count 20,000, H and H are 12 and 38, platelet count 505, left shift. Lytes are normal. His total bilirubin is 1. Liver function is normal. Pancreatitis, felt to be secondary to presumed alcohol intake. Left pleural effusion pancreatitis. He is presently relatively asymptomatic. I am going to hold off thoracentesis. Repeat chest x-ray. In a day or two, if he is clearly symptomatic, we will do thoracentesis. Early ambulation. Consultation note, 70 minutes, 50% direct patient care. Job ID: [id number]
--- NOTE | 2020-04-04 14:46 | PRG ---
DATE OF SERVICE: 04/04/2020 SUBJECTIVE: Jose reports continued very slow improvement. His abdominal pain is much improved, well controlled. No further nausea or vomiting. He continues to have early satiety and appetite is poor. He is tolerating his diet, but having to eat quite slowly. He is not having any shortness of breath or fever. OBJECTIVE: VITAL SIGNS: Temperature 97.3, pulse 83, blood pressure 131/83, 93% oxygen saturation on room air. GENERAL: Sitting up in chair comfortably, in no distress. HEART: Regular rate and rhythm. LUNGS: Clear to auscultation bilaterally. ABDOMEN: Bowel sounds are present. Soft, nontender to palpation throughout. EXTREMITIES: No peripheral edema. LABORATORY STUDIES: WBC remains elevated up to 22.7 today, hemoglobin 12.7, platelets up to 505. Sodium 134, potassium 3.4, BUN 10, creatinine 0.71, total bilirubin 1.0, alkaline phosphatase 131, AST 34, ALT 15. COVID PCR negative. ASSESSMENT AND PLAN: 1. Acute alcoholic pancreatitis, severe, with some necrosis visualized on initial CT. 2. Pancreatic pseudocyst, measuring 2.5 cm in the neck of the pancreas. 3. Nonocclusive splenic vein thrombosis. 4. Left pleural effusion. The patient continues to make slow clinical improvement. Dr. Navarrete recommended against starting anticoagulation for it appears to be a small nonocclusive splenic vein thrombus. The patient remains on meropenem, though sterile necrosis is more likely. Awaiting formal Infectious Disease opinion on antibiotics going forward. Note, Dr. Ching did not feel thoracentesis was necessary and indeed the patient's respiratory status is good. Hopefully, the patient will be able to continue to advance his diet sufficiently to meet nutritional needs orally. Job ID: [id number]
[2020-04-04] MEDS: Acetaminophen 325 MG TAB PO PRN ×2 (16:42→21:49)
--- NOTE | 2020-04-04 23:01 | CON ---
DATE OF CONSULTATION: 04/04/2020 REASON FOR CONSULT: Pancreatitis with possibility of superimposed infection. HISTORY OF PRESENT ILLNESS: A 19-year-old who has a history of previous episode of abdominal pain, which was evaluated in [facility] with an EGD and a HIDA scan and ultrasound without ever reaching a conclusion as to what the cause of the pain was. He had lost 20 pounds during this episode 2 years ago and no specific treatment was provided, but he got better eventually and regained weight and forgot about this issue. He had just started going to college and did not have any significant exposure to alcoholic beverages then, so he other than that has no major issues other than accidents while playing hockey in school. A day or two before admission, he developed an intense epigastric and mid abdominal periumbilical pain, nausea, vomiting, and abdominal distention. He was seen at [facility] and was noted to have an elevated lipase. CT of the abdomen showed evidence consistent with acute pancreatitis, so he was given the usual management at [facility] without improvement. The lipase got even worse, so he was then transferred to [facility] for management. Initial findings included white cell count of 13.5 and bands were 32%; chemistry with a sodium of 135, creatinine of 0.89, the AST was 23, ALT 12, alkaline phosphatase 82, bilirubin was 1, albumin 3.1, and amylase was 412, and lipase 1571. IMAGING STUDIES: Performed thus included an abdomen and pelvis CT on March 26, which showed acute pancreatitis and foci of nonenhancement and pancreatic parenchyma with concern for necrosis along with peripancreatic necrosis. Multiple small mural thrombi anterior wall of the splenic vein. Nonocclusive hepatic steatosis noted. Chest CT scan performed two days later showed moderately large bilateral pleural effusions with areas of consolidation, probably due to atelectasis. There was wall thickening of the mid thoracic esophagus, which was determined to be secondary to esophagitis by EGD performed by Dr. Hugo and a second abdomen and pelvis CT was performed six days after admission and this demonstrated acute pancreatitis, likely developing pseudocyst along the pancreatic neck. There was evidence of hyperdensity in the gallbladder which could represent stone sludge or previous contrast. The latest chest x-ray with bilateral effusions. Patient is sitting by the bedside. His father is in the room with him. He is kind of diaphoretic and no headaches. No visual symptoms, sore throat, odynophagia, or dysphagia. No dental pain. He has had some back pain now in the mid thoracic area. He felt some shoulder pain on the right side. The abdomen is still distended and moderately tender. He still has a Zarate catheter in place. No joint pains. No scrotal abnormalities noted. He did have a lot of edema in the scrotum which has receded now. He is not dyspneic. PAST MEDICAL HISTORY: Other than fractures from playing hockey, he has had this episode of epigastric and abdominal pain about two years ago in [place], which was evaluated with an EGD, HIDA scan, abdominal ultrasound without any specific diagnosis had been given or specific treatment with spontaneous improvement. During this episode, patient had lost 20 pounds. FAMILY HISTORY: Noncontributory. SOCIALLY: He is a college student and he drinks like a college student drinks, in other words, usually binge drinking at times, but he does not have more than usual intake that one would see in this sort of situation. No smoking. No drug use. ALLERGIES: NONE. CURRENT MEDICATION LIST: Include; 1. Celexa. 2. Colace. 3. Fentanyl. 4. Lasix. 5. Hydrocodone. 6. Meropenem. 7. Pantoprazole. 8. Tramadol. 9. Ambien. PHYSICAL EXAMINATION: VITAL SIGNS: Here, he had a temp of 101 on the 15th, but has been afebrile since. BP 117/78, heart rate 94, respiratory rate 18, and O2 saturation has ranged from 92 to 97. GENERAL: He is diaphoretic, but does not appear in distress. He is allowed to eat and drink low-fat diet. No skin abnormality. He has a Zarate catheter and peripheral IV access. No lymphadenopathy. HEENT: Ocular movements conjugate. Sclerae white. Pupils are equal. Oral cavity normal. Teeth in good shape. NECK: Supple. LUNGS: With fairly symmetric, clear breath sounds, somewhat diminished at the bases. No wheezing. HEART: S1, S2. Regular rate. No S3 or S4. ABDOMEN: Moderately distended and moderately tender around the mid abdominal area anteriorly. Bowel sounds are present. No bladder distention. No joint inflammatory activity. No edema. Pulses 1+ in dorsalis pedis. GENITAL EXAMINATION: Normal. NEUROLOGIC: Nonfocal. His cognitive function appears to be intact. LABORATORY DATA: Latest labs. Sodium 134, creatinine 0.71, and alkaline phosphatase 131. The alkaline phosphatase had been going up, but then started to decrease now. Transaminases are normal. The last lipase was 189. SARS-CoV was not detected. Imaging studies have been discussed above. ASSESSMENT: History of abdominal pain two years ago in [place], probably due to the pancreatitis that was not identified then. Now, he presents with recurrence. I believe we can discontinue antimicrobials without fear. The bands are improving and I think this is all related to his pancreatic inflammatory activity rather than true superinfection of pancreatic necrosis. Most if not all guidelines from different medical societies recommend avoidance of empiric antimicrobial therapy administration without further evidence of infected pancreatic necrosis. I would also encourage removal of the Zarate catheter as soon as possible. The etiology of pancreatitis is not clear and I think that further evaluation is being carried out particularly in relationship to autoimmune pancreatitis. Job ID: [id number]
[2020-04-05] MEDS: traMADol HCl 50 MG TAB PO PRN (03:13)
[2020-04-05] MEDS: Potassium Chloride 20 MEQ TAB PO SCH ×2 (05:25→16:58)
[2020-04-05 06:01] LABS: Anion Gap 16 mmol/L (10-20); BUN (Urea Nitrogen) 11 mg/dL (8.9-20.6); Calc. Creatinine Clearance 133 mL/min (70-130); Calcium 9.3 mg/dL (7.8-10.44); Carbon Dioxide 28 mmol/L (22-29); Chloride 94 mmol/L (98-107); Estimated GFR-MDRD Greater than 90; Glucose 99 mg/dL (70-105); Potassium 5.2 mmol/L (3.5-5.1); Sodium 133 mmol/L (136-145)
[2020-04-05 06:04] LABS: Band 26 % (5-11); Eosinophils 2 % (0-10); Hemoglobin 12.8 g/dL (14.0-18.0); Lymphocytes 6 % (21-51); MDiff Complete? YES; Mean Corpuscular HGB CONC 31.3 g/dL (32.0-36.0); Mean Corpuscular Hemoglobin 28.2 pg (27.0-31.0); Mean Corpuscular Volume 90.1 fL (78.0-98.0); Mean Platelet Volume 7.1 fL (7.4-10.4); Metamyelocyte 6 % (0-0); Monocytes 3 % (0-10); Myelocyte 2 % (0-0); Neutrophil 55 % (42-75); Platelet Count 599 thou/uL (130-400); Platelet Morphology Comment Appears Increased; RBC Distribution Width 12.7 % (11.5-14.5); Red Blood Cell (RBC) Count 4.55 mill/uL (4.70-6.10); White Blood Cell (WBC) Count 22.4 thou/uL (4.8-10.8)
[2020-04-05] MEDS: Furosemide 40 MG/4 ML VIAL SLOW IVP SCH (07:53)
[2020-04-05] MEDS: Pantoprazole 40 MG VIAL IVP SCH ×2 (07:53→20:03)
[2020-04-05] MEDS: Citalopram 20 MG TAB PO SCH (07:53)
[2020-04-05] MEDS: Ibuprofen 200 MG TAB PO SCH ×3 (11:43→23:38)
--- NOTE | 2020-04-05 13:18 | PRG ---
DATE OF SERVICE: 04/05/2020 SUBJECTIVE: Mr. Sales still has pain in the epigastric region, which has been stable. No nausea or vomiting. He is tolerating a low-fat diet. He has been ambulating. OBJECTIVE: VITAL SIGNS: Temperature 98.7, pulse 81, and blood pressure 125/85. GENERAL: He is in no acute distress. Alert and oriented x3. HEENT: Eyes have no scleral icterus. LUNGS: Clear to auscultation bilaterally. HEART: Regular rate and rhythm without murmur. ABDOMEN: Soft. His bowel sounds are present and has tenderness in the epigastric region to palpation. EXTREMITIES: No lower extremity edema. LABORATORY DATA: White blood cell count 22.4, hemoglobin 12.8, and platelets 599. Creatinine 0.71, bilirubin 1.0, AST 34, ALT 15, alkaline phosphatase 131, and albumin 3.1. IMPRESSION: 1. Acute pancreatitis. This is possibly recurrent with a milder episode of pain couple of years ago when he was in [place]. 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 Still, given his young age and alcohol level that appears to be below typical for alcohol-induced pancreatitis, we need to continue to consider other etiologies. There are no signs of biliary or triglyceride-induced pancreatitis. Question of autoimmune pancreatitis has been considered as well and we have sent an IgG subclass 4, which is pending. If this is elevated and that would be suggestive of autoimmune pancreatitis etiology. 2. Splenic vein thrombosis. A partially occluding isolated splenic vein thrombosis should not require anticoagulation at this point. Hopefully, this should resolve as his pancreatitis resolves. If this is shown to extend into the portal vein with future imaging, then anticoagulation can be started. Endoscopy was negative for gastric varices. 3. Erosive esophagitis, severe grade D. He will need to continue proton pump inhibitor twice daily. RECOMMENDATIONS: 1. He is planning to move back to [place] with his family for the remainder of the semester in through the holiday season. He plans to establish with GI there during that time period. 2. Again, complete alcohol abstinence has been discussed and he agrees to this. He is also advised to remain off tobacco as well. 3. Await IgG subclass 4 level. 4. If he has acute recurrent pancreatitis in the future despite withholding alcohol, then pancreas biopsy could even be considered for the diagnostic workup; however, endoscopic ultrasound should be done first. Again, that can all be done as an outpatient. We do not do EUS at this facility. 5. His antibiotics have been discontinued as he has remained afebrile with the assistance of Infectious Disease, is felt to be most likely that his leukocytosis is related to the acute inflammatory process rather than infected pancreatic necrosis. 6. Pain control per Primary Service. I am concerned that it is high risk for opioid dependence as well. 7. Small fluid collection in the neck of the pancreas. This could develop into a pseudocyst. Imaging in around a month with CT with contrast could be helpful to determine the progress of this fluid collection, whether it develops organized pseudocyst or become enlarges and also status of the splenic vein thrombosis can be evaluated into. 8. It is anticipated that he will be discharged home tomorrow. He is tolerating a low-fat diet. Job ID: [id number]
[2020-04-06] MEDS: Ibuprofen 200 MG TAB PO SCH (06:16)
[2020-04-06 06:52] LABS: Hemoglobin 13.8 g/dL (14.0-18.0); Mean Corpuscular HGB CONC 33.2 g/dL (32.0-36.0); Mean Corpuscular Hemoglobin 30.3 pg (27.0-31.0); Mean Corpuscular Volume 91.1 fL (78.0-98.0); Mean Platelet Volume 7.4 fL (7.4-10.4); Platelet Count 653 thou/uL (130-400); RBC Distribution Width 12.5 % (11.5-14.5); Red Blood Cell (RBC) Count 4.57 mill/uL (4.70-6.10); White Blood Cell (WBC) Count 19.7 thou/uL (4.8-10.8)
[2020-04-06 07:03] LABS: Anion Gap 20 mmol/L (10-20); BUN (Urea Nitrogen) 14 mg/dL (8.9-20.6); Calc. Creatinine Clearance 126 mL/min (70-130); Calcium 9.6 mg/dL (7.8-10.44); Carbon Dioxide 25 mmol/L (22-29); Chloride 94 mmol/L (98-107); Estimated GFR-MDRD Greater than 90; Glucose 105 mg/dL (70-105); Potassium 4.1 mmol/L (3.5-5.1); Sodium 135 mmol/L (136-145)
[2020-04-06 07:20] VITALS: BP 122/76; TEMP 98
[2020-04-06] MEDS: Potassium Chloride 20 MEQ TAB PO SCH (08:52)
[2020-04-06] MEDS: Furosemide 40 MG/4 ML VIAL SLOW IVP SCH (08:52)
[2020-04-06] MEDS: Citalopram 20 MG TAB PO SCH (08:52)
[2020-04-06] MEDS: Pantoprazole 40 MG VIAL IVP SCH (08:53)
--- NOTE | 2020-04-06 09:39 | RAD ---
EXAM: Chest one view: HISTORY: Follow-up pleural effusion COMPARISON: 04/03/2020 FINDINGS: Heart size: Within normal limits. Lungs: Clear of acute process. Minimally decreasing left pleural effusion. IMPRESSION: Minimal decreasing left pleural effusion.
[2020-04-06 09:40] LABS: Band 15 % (5-11); Eosinophils 2 % (0-10); Lymphocytes 9 % (21-51); MDiff Complete? YES; Metamyelocyte 5 % (0-0); Monocytes 8 % (0-10); Myelocyte 2 % (0-0); Neutrophil 57 % (42-75); Platelet Morphology Comment Appears Increased; Polychromasia SLIGHT = 2-3 cells (100X) (0-2/hpf); Reactive Lymphocytes 2 % (0-10)
--- NOTE | 2020-04-06 12:51 | PRG ---
DATE OF SERVICE: 04/06/2020 A 19-year-old gentleman. PHYSICAL EXAMINATION: VITAL SIGNS: Temperature 98, pulse 70, respirations 20, sats 97% on room air, blood pressure 120/76. He is better. He is less short of breath. LABORATORY DATA: White count 19,000; slight left shift. X-ray shows slightly decreasing left pleural effusion. ASSESSMENT: Pancreatitis, left pleural effusion; getting better, asymptomatic. No need to do thoracentesis. If he becomes symptomatic, he will notify us. He can be discharged to home anytime. Job ID: [id number]
--- NOTE | 2020-04-06 14:06 | PRG ---
DATE OF SERVICE: 04/05/2020 SUBJECTIVE: Jose Sales is a 19-year-old gentleman, still having significant abdominal pain, but no shortness of breath. OBJECTIVE: VITAL SIGNS: respiratory rate 18, sats on room air, blood pressure 119/79. CHEST: Decreased breath sounds unremarkable. CARDIAC: Normal S1, S2. No gallops. ABDOMEN: No masses. LABORATORY DATA: White count 28,000. IMPRESSION: Pancreatitis, left pleural effusion. PLAN: The patient is to be discharged home tomorrow I am told. Will review his chest x-ray. Continue supportive care. Job ID: [id number]
== END 2020-04-06 14:05 | disposition home or self-care (01) | DRG 439 ==
LOC: T4-B 08:28
PROVIDERS: ADMIT Specialist; ATTEND Internal Medicine
PROC: 0DJ08ZZ Inspection of Upper Intestinal Tract, Via Natural or Artificial Opening Endoscopic (ICD-10-PCS; principal; 2020-03-30)
PROC: 02HV33Z Insertion of Infusion Device into Superior Vena Cava, Percutaneous Approach (ICD-10-PCS; 2020-04-03)
PROC: B518ZZA Fluoroscopy of Superior Vena Cava, Guidance (ICD-10-PCS; 2020-04-03)
PROC: B548ZZA Ultrasonography of Superior Vena Cava, Guidance (ICD-10-PCS; 2020-04-03)
DX: K85.21 Alcohol induced acute pancreatitis with uninfected necrosis (principal); K86.3 Pseudocyst of pancreas; J90 Pleural effusion, not elsewhere classified; K21.00 Gastro-esophageal reflux disease with esophagitis, without bleeding; K44.9 Diaphragmatic hernia without obstruction or gangrene; Z20.828 Contact with and (suspected) exposure to other viral communicable diseases; F32.9 Major depressive disorder, single episode, unspecified; E86.0 Dehydration; F41.9 Anxiety disorder, unspecified; D73.5 Infarction of spleen; Z28.21 Immunization not carried out because of patient refusal; Z79.899 Other long term (current) drug therapy
CPT/HCPCS: 36415; 36569; 71045; 71046; 71260; 74177; 74178; 76770; 80048; 80053; 82150; 82787; 83690; 83735; 85025; 87040; 87635; C1751; C9113; J1644; J1885; J1940; J2185; J2405; J2704; J3010; J3475; J3480; J3490; J7050; P9047; Q9967; U0003

== ENCOUNTER 2020-04-30 23:51 | Emergency (ER) | payer OTHER ==
[2020-05-01 01:55] LABS: #Basophils 0.1 thou/uL (0.0-0.2); #Eosinphils 0.4 thou/uL (0.0-0.7); #Lymphocytes 2.5 thou/uL (1.20-3.40); #Monocytes 0.9 thou/uL (0.11-0.59); #Neutrophils 5.8 thou/uL (1.40-6.50); %Basophils 0.5 % (0.0-1.0); %Lymphocytes 26.1 % (21.0-51.0); %Monocytes 9.6 % (0.0-10.0); %Neutrophils 59.7 % (42.0-75.0); Hemoglobin 13.4 g/dL (14.0-18.0); Mean Corpuscular Hemoglobin 30.1 pg (27.0-31.0); Mean Platelet Volume 8.2 fL (7.4-10.4); Platelet Count 287 thou/uL (130-400); RBC Distribution Width 12.3 % (11.5-14.5); Red Blood Cell (RBC) Count 4.45 mill/uL (4.70-6.10); White Blood Cell (WBC) Count 9.7 thou/uL (4.8-10.8)
[2020-05-01] MEDS ORDERED: Morphine 4 MG/ML VIAL ONE (01:55)
[2020-05-01] MEDS ORDERED: Ondansetron PF 4 MG/2 ML Vial ONE (01:55)
[2020-05-01 02:15] LABS: ALT (SGPT) 22 U/L (8-55); AST (SGOT) 23 U/L (5-34); Albumin 3.7 g/dL (3.5-5.0); Alkaline Phosphatase 71 U/L (40-110); Anion Gap 14 mmol/L (10-20); BUN (Urea Nitrogen) 9 mg/dL (8.9-20.6); Bilirubin, Total 1.1 mg/dL (0.2-1.2); Calc. Creatinine Clearance 0 mL/min (70-130); Calcium 8.5 mg/dL (7.8-10.44); Carbon Dioxide 25 mmol/L (22-29); Chloride 102 mmol/L (98-107); Globulin 2.7 g/dL (2.4-3.5); Glucose 81 mg/dL (70-105); Lipase 49 U/L (8-78); Potassium 3.6 mmol/L (3.5-5.1); Protein, Total 6.4 g/dL (6.0-8.3); Sodium 137 mmol/L (136-145)
[2020-05-01] MEDS ORDERED: Ketorolac Tromethamine 30 MG/ML VIAL ONE (02:35)
[2020-05-01] MEDS ORDERED: Lidocaine Viscous Sol 2% 15 ml UD Cup ONE (03:23)
[2020-05-01] MEDS ORDERED: Mag-Al 1200 mg/1200 mg/30 ML UDCUP ONE (03:23)
--- NOTE | 2020-05-01 07:50 | CT ---
PRELIMINARY REPORT/[facility]/EMERGENCY AFTER HOURS PROCEDURE EXAM: CT Abdomen and Pelvis with Intravenous Contrast CLINICAL HISTORY: WAS HOSPITALIZED IN [place]ARCH FOR 2 WEEKS WITH PANCREATITIS, STATES HE IS HAVING A FLARE UP AGAIN THAT STARTED TONIGHT. DIFFUSELY TENDER ABDOMEN. HURTS TO LAY FLAT TECHNIQUE: Axial computed tomography images of the abdomen and pelvis with intravenous contrast. CONTRAST: With; ISOVUE 370,100mL COMPARISON: 04/01/2020. FINDINGS: LUNG BASES: No basilar airspace consolidation or pleural effusion. LIVER: The liver measures 17.7 cm in length and is hypoenhancing. GALLBLADDER AND BILE DUCTS: Unremarkable. No calcified stone. No ductal dilation. PANCREAS: Mild residual peripancreatic fat stranding. Fluid collection is seen adjacent to the pancreas superi doreen measuring 1.2 x 1.9 x 6.2 cm and inferiorly measuring 1.6 x 3.0 x 1.4 cm. SPLEEN: Unremarkable. ADRENAL GLANDS: Unremarkable. KIDNEYS, URETERS, AND BLADDER: Unremarkable. No hydronephrosis or nephrolithiasis. No ureteral or bladder calculi. STOMACH AND BOWEL: No obstruction. No wall thickening. No CT evidence of colitis or acute diverticulitis. APPENDIX: No CT evidence for appendicitis. PERITONEUM: Small amount of free fluid in the pelvis. No free air. LYMPH NODES: No lymphadenopathy. REPRODUCTIVE: Unremarkable as visualized. VASCULATURE: No aortic aneurysm. BONES: No fracture or suspicious osseous abnormality. ABDOMINAL WALL AND SOFT TISSUES: Unremarkable. IMPRESSION: Mild residual inflammatory changes related to pancreatitis. 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 Hepatomegaly with fatty infiltration. Small amount of free fluid in the pelvis. ELECTRONICALLY SIGNED BY: Marcelo Santa MD May 01, 2020 1:58:04 AM RN NAVIGATOR This report is intended for review by the ordering physician only, in accordance of law. If you recei ve this report in error, please call [facility] at [phone]. FINAL REPORT CT Abdomen Pelvis W Con History: Abdominal pain Comparison: Abdomen pelvis CT April 01, 2020 Findings/Impression: Concordant with the initial report. Transcribed Date/Time: 05/01/2020 7:53 AM
[2020-05-01] MEDS ORDERED: Iopamidol-370 76% 500 ML 1 ML ONE (09:36)
== END 2020-05-01 04:30 | disposition home or self-care (01) ==
LOC: ERS 23:51
DX: R10.13 Epigastric pain (principal); R11.2 Nausea with vomiting, unspecified
CPT/HCPCS: 36415; 74177; 80053; 83690; 85025; 96374; 96375; J1885; J2270; J2405; Q9967

== ENCOUNTER 2020-06-12 14:35 | Inpatient (IN) | payer OTHER ==
[2020-06-12 15:06] LABS: #Basophils 0.1 thou/uL (0.0-0.2); #Eosinphils 0.2 thou/uL (0.0-0.7); #Lymphocytes 1.3 thou/uL (1.20-3.40); #Monocytes 0.8 thou/uL (0.11-0.59); #Neutrophils 13.6 thou/uL (1.40-6.50); %Basophils 0.6 % (0.0-1.0); %Eosinophils 1.5 % (0.0-10.0); %Lymphocytes 8.4 % (21.0-51.0); %Monocytes 4.8 % (0.0-10.0); %Neutrophils 84.7 % (42.0-75.0); Hemoglobin 17.5 g/dL (14.0-18.0); Mean Corpuscular HGB CONC 34.9 g/dL (32.0-36.0); Mean Corpuscular Hemoglobin 29.5 pg (27.0-31.0); Mean Corpuscular Volume 84.6 fL (78.0-98.0); Mean Platelet Volume 7.8 fL (7.4-10.4); Platelet Count 318 thou/uL (130-400); RBC Distribution Width 12.6 % (11.5-14.5); Red Blood Cell (RBC) Count 5.92 mill/uL (4.70-6.10)
[2020-06-12 15:22] LABS: ALT (SGPT) 20 U/L (8-55); AST (SGOT) 25 U/L (5-34); Albumin 4.4 g/dL (3.5-5.0); Alkaline Phosphatase 90 U/L (40-110); Anion Gap 15 mmol/L (10-20); BUN (Urea Nitrogen) 6 mg/dL (8.9-20.6); Bilirubin, Total 2.3 mg/dL (0.2-1.2); Calc. Creatinine Clearance 0 mL/min (70-130); Calcium 9.6 mg/dL (7.8-10.44); Carbon Dioxide 26 mmol/L (22-29); Chloride 102 mmol/L (98-107); Globulin 3.1 g/dL (2.4-3.5); Glucose 109 mg/dL (70-105); Potassium 3.4 mmol/L (3.5-5.1); Protein, Total 7.5 g/dL (6.0-8.3); Sodium 140 mmol/L (136-145)
[2020-06-12 15:36] LABS: Lipase 1737 U/L (8-78)
[2020-06-12] MEDS ORDERED: Ondansetron PF 4 MG/2 ML Vial ONE (15:39)
[2020-06-12] MEDS ORDERED: Morphine 4 MG/ML VIAL ONE (15:39)
[2020-06-12 17:30] VITALS: BMI 21.3
[2020-06-12] MEDS ORDERED: diphenhydrAMINE 25 MG CAP PO PRN (18:21)
[2020-06-12] MEDS ORDERED: HYDROmorphone 10 mg/100 ml CADD IVPB PRN (18:21)
[2020-06-12] MEDS ORDERED: diphenhydrAMINE 50 MG/ML VIAL IM PRN (18:21)
[2020-06-12] MEDS ORDERED: Naloxone HCl 0.4 mg/ml Vial IV PRN (18:21)
[2020-06-12] MEDS ORDERED: diphenhydrAMINE 50 MG/ML VIAL IVP PRN (18:21)
[2020-06-12] MEDS ORDERED: Zolpidem Tartrate 5 MG TAB PO PRN (18:21)
[2020-06-12] MEDS ORDERED: Promethazine HCl 25 MG/ML VIAL IM PRN (18:21)
[2020-06-12] MEDS ORDERED: Communication Order-Pharmacy FS SCH (18:30)
[2020-06-12] MEDS ORDERED: Ondansetron PF 4 MG/2 ML Vial IVP PRN (18:44)
[2020-06-12] MEDS ORDERED: Sodium Chloride 0.9% (PF) 10 ML VIAL FS PRN (18:45)
[2020-06-12] MEDS ORDERED: Lorazepam 2 MG/ML VIAL SLOW IVP PRN (18:46)
[2020-06-12] MEDS: Pantoprazole 40 MG VIAL IVP SCH (20:13)
[2020-06-12] MEDS: Ondansetron PF 4 MG/2 ML Vial IVP PRN (20:20)
[2020-06-13 06:12] LABS: #Eosinphils 0.3 thou/uL (0.0-0.7); #Lymphocytes 1.2 thou/uL (1.20-3.40); #Monocytes 1.1 thou/uL (0.11-0.59); #Neutrophils 10.3 thou/uL (1.40-6.50); %Basophils 0.1 % (0.0-1.0); %Eosinophils 2.3 % (0.0-10.0); %Lymphocytes 9.2 % (21.0-51.0); %Monocytes 8.7 % (0.0-10.0); %Neutrophils 79.7 % (42.0-75.0); Hemoglobin 15.2 g/dL (14.0-18.0); Mean Corpuscular HGB CONC 34.5 g/dL (32.0-36.0); Mean Corpuscular Hemoglobin 29.6 pg (27.0-31.0); Platelet Count 270 thou/uL (130-400); RBC Distribution Width 12.8 % (11.5-14.5); Red Blood Cell (RBC) Count 5.11 mill/uL (4.70-6.10); White Blood Cell (WBC) Count 12.9 thou/uL (4.8-10.8)
[2020-06-13 06:47] LABS: Anion Gap 16 mmol/L (10-20); BUN (Urea Nitrogen) 7 mg/dL (8.9-20.6); Calc. Creatinine Clearance 144 mL/min (70-130); Calcium 8.8 mg/dL (7.8-10.44); Carbon Dioxide 24 mmol/L (22-29); Chloride 103 mmol/L (98-107); Glucose 95 mg/dL (70-105); Lipase 751 U/L (8-78); Potassium 3.8 mmol/L (3.5-5.1); Sodium 139 mmol/L (136-145)
[2020-06-13] MEDS: Pantoprazole 40 MG VIAL IVP SCH ×2 (08:16→20:20)
[2020-06-13] MEDS: Potassium Chloride 20 MEQ in Lactated Ringer's 1,000 ML IV SCH (15:10)
[2020-06-13] MEDS: HYDROmorphone 10 mg/100 ml CADD IVPB PRN (15:29)
[2020-06-14] MEDS: Potassium Chloride 20 MEQ in Lactated Ringer's 1,000 ML IV SCH ×3 (00:31→20:17)
[2020-06-14] MEDS: HYDROmorphone 10 mg/100 ml CADD IVPB PRN ×2 (06:07→15:49)
[2020-06-14 07:01] LABS: #Eosinphils 0.6 thou/uL (0.0-0.7); #Lymphocytes 1.6 thou/uL (1.20-3.40); #Monocytes 0.8 thou/uL (0.11-0.59); #Neutrophils 5.9 thou/uL (1.40-6.50); %Basophils 0.1 % (0.0-1.0); %Lymphocytes 17.7 % (21.0-51.0); %Monocytes 8.9 % (0.0-10.0); %Neutrophils 66.3 % (42.0-75.0); Hemoglobin 13.2 g/dL (14.0-18.0); Mean Corpuscular HGB CONC 34.9 g/dL (32.0-36.0); Mean Corpuscular Hemoglobin 30.9 pg (27.0-31.0); Mean Corpuscular Volume 88.7 fL (78.0-98.0); Mean Platelet Volume 8.3 fL (7.4-10.4); Platelet Count 232 thou/uL (130-400); RBC Distribution Width 12.5 % (11.5-14.5); Red Blood Cell (RBC) Count 4.28 mill/uL (4.70-6.10); White Blood Cell (WBC) Count 8.9 thou/uL (4.8-10.8)
[2020-06-14 07:19] LABS: Anion Gap 19 mmol/L (10-20); BUN (Urea Nitrogen) 8 mg/dL (8.9-20.6); Calc. Creatinine Clearance 138 mL/min (70-130); Calcium 8.6 mg/dL (7.8-10.44); Carbon Dioxide 23 mmol/L (22-29); Chloride 98 mmol/L (98-107); Glucose 60 mg/dL (70-105); Lipase 271 U/L (8-78); Sodium 136 mmol/L (136-145)
[2020-06-14] MEDS: Milk Of Magnesia 30 ML UDCUP PO SCH (08:49)
[2020-06-14] MEDS: Pantoprazole 40 MG VIAL IVP SCH ×2 (08:50→20:16)
[2020-06-14] MEDS: Ondansetron PF 4 MG/2 ML Vial IVP PRN (17:43)
[2020-06-15] MEDS: HYDROmorphone 10 mg/100 ml CADD IVPB PRN ×3 (01:10→23:11)
[2020-06-15 06:24] LABS: #Eosinphils 0.4 thou/uL (0.0-0.7); #Lymphocytes 1.3 thou/uL (1.20-3.40); #Monocytes 0.8 thou/uL (0.11-0.59); #Neutrophils 6.1 thou/uL (1.40-6.50); %Basophils 0.2 % (0.0-1.0); %Eosinophils 4.9 % (0.0-10.0); %Lymphocytes 14.6 % (21.0-51.0); %Monocytes 9.5 % (0.0-10.0); %Neutrophils 70.8 % (42.0-75.0); Hemoglobin 13.3 g/dL (14.0-18.0); Mean Corpuscular HGB CONC 34.7 g/dL (32.0-36.0); Mean Corpuscular Hemoglobin 30.6 pg (27.0-31.0); Mean Corpuscular Volume 88.3 fL (78.0-98.0); Mean Platelet Volume 7.8 fL (7.4-10.4); Platelet Count 250 thou/uL (130-400); RBC Distribution Width 12.5 % (11.5-14.5); Red Blood Cell (RBC) Count 4.33 mill/uL (4.70-6.10); White Blood Cell (WBC) Count 8.6 thou/uL (4.8-10.8)
[2020-06-15 06:47] LABS: Anion Gap 18 mmol/L (10-20); BUN (Urea Nitrogen) Less than 4 mg/dL (8.9-20.6); Calc. Creatinine Clearance 128 mL/min (70-130); Calcium 8.7 mg/dL (7.8-10.44); Carbon Dioxide 26 mmol/L (22-29); Chloride 94 mmol/L (98-107); Glucose 81 mg/dL (70-105); Lipase 179 U/L (8-78); Potassium 3.9 mmol/L (3.5-5.1); Sodium 134 mmol/L (136-145)
[2020-06-15] MEDS: Potassium Chloride 20 MEQ in Lactated Ringer's 1,000 ML IV SCH ×2 (07:18→17:15)
[2020-06-15] MEDS: Pantoprazole 40 MG VIAL IVP SCH ×2 (08:56→20:45)
[2020-06-15] MEDS: Milk Of Magnesia 30 ML UDCUP PO SCH (08:56)
[2020-06-16] MEDS: Potassium Chloride 20 MEQ in Lactated Ringer's 1,000 ML IV SCH ×2 (01:04→08:21)
[2020-06-16 08:20] LABS: #Eosinphils 0.2 thou/uL (0.0-0.7); #Lymphocytes 1.4 thou/uL (1.20-3.40); #Monocytes 0.6 thou/uL (0.11-0.59); #Neutrophils 2.4 thou/uL (1.40-6.50); %Basophils 0.2 % (0.0-1.0); %Lymphocytes 29.7 % (21.0-51.0); %Monocytes 12.1 % (0.0-10.0); Hemoglobin 13.2 g/dL (14.0-18.0); Mean Corpuscular HGB CONC 33.7 g/dL (32.0-36.0); Mean Corpuscular Hemoglobin 29.4 pg (27.0-31.0); Mean Corpuscular Volume 87.1 fL (78.0-98.0); Mean Platelet Volume 7.5 fL (7.4-10.4); Platelet Count 261 thou/uL (130-400); RBC Distribution Width 12.6 % (11.5-14.5); White Blood Cell (WBC) Count 4.6 thou/uL (4.8-10.8)
[2020-06-16] MEDS: Milk Of Magnesia 30 ML UDCUP PO SCH (08:20)
[2020-06-16] MEDS: Pantoprazole 40 MG VIAL IVP SCH ×2 (08:20→20:35)
[2020-06-16 08:40] LABS: Anion Gap 11 mmol/L (10-20); BUN (Urea Nitrogen) Less than 4 mg/dL (8.9-20.6); Calc. Creatinine Clearance 142 mL/min (70-130); Calcium 8.9 mg/dL (7.8-10.44); Carbon Dioxide 34 mmol/L (22-29); Chloride 99 mmol/L (98-107); Glucose 93 mg/dL (70-105); Lipase 135 U/L (8-78); Potassium 4.3 mmol/L (3.5-5.1); Sodium 140 mmol/L (136-145)
[2020-06-16] MEDS: HYDROcodone/Acetaminophen 5/325 mg Tablet PO PRN ×2 (17:45→21:48)
[2020-06-17 08:11] LABS: #Basophils 0.1 thou/uL (0.0-0.2); #Eosinphils 0.4 thou/uL (0.0-0.7); #Lymphocytes 1.3 thou/uL (1.20-3.40); #Monocytes 0.6 thou/uL (0.11-0.59); #Neutrophils 2.4 thou/uL (1.40-6.50); %Basophils 1.1 % (0.0-1.0); %Eosinophils 7.9 % (0.0-10.0); %Lymphocytes 27.2 % (21.0-51.0); %Monocytes 13.1 % (0.0-10.0); %Neutrophils 50.6 % (42.0-75.0); Mean Corpuscular HGB CONC 33.9 g/dL (32.0-36.0); Mean Corpuscular Hemoglobin 29.9 pg (27.0-31.0); Mean Corpuscular Volume 88.4 fL (78.0-98.0); Platelet Count 285 thou/uL (130-400); RBC Distribution Width 12.7 % (11.5-14.5); Red Blood Cell (RBC) Count 5.01 mill/uL (4.70-6.10); White Blood Cell (WBC) Count 4.8 thou/uL (4.8-10.8)
[2020-06-17] MEDS: Milk Of Magnesia 30 ML UDCUP PO SCH (08:40)
[2020-06-17] MEDS: HYDROcodone/Acetaminophen 5/325 mg Tablet PO PRN (08:41)
[2020-06-17] MEDS: Pantoprazole 40 MG VIAL IVP SCH (09:11)
[2020-06-17 12:00] VITALS: BP 123/79; TEMP 98.3
== END 2020-06-17 12:40 | disposition home or self-care (01) | DRG 440 ==
LOC: ERS 14:35 → T4-B 17:11
PROVIDERS: ADMIT Specialist; ATTEND Specialist
DX: K85.90 Acute pancreatitis without necrosis or infection, unspecified (principal); Z20.822 Contact with and (suspected) exposure to COVID-19; E86.0 Dehydration; E87.6 Hypokalemia; F32.9 Major depressive disorder, single episode, unspecified; Z79.899 Other long term (current) drug therapy
CPT/HCPCS: 36415; 74160; 80048; 80053; 82977; 83690; 84478; 85025; 96374; 96375; C9113; J2270; J2405; J2550; J7120; Q0163

== ENCOUNTER 2020-07-16 08:56 | Inpatient (IN) | payer OTHER ==
[2020-07-16] MEDS ORDERED: Morphine 4 MG/ML VIAL ONE ×3 (09:41→12:31)
[2020-07-16] MEDS ORDERED: Ondansetron PF 4 MG/2 ML Vial ONE ×2 (09:41→09:59)
[2020-07-16 09:42] LABS: #Eosinphils 0.4 thou/uL (0.0-0.7); #Lymphocytes 1.6 thou/uL (1.20-3.40); #Neutrophils 10.6 thou/uL (1.40-6.50); %Basophils 0.2 % (0.0-1.0); %Eosinophils 2.7 % (0.0-10.0); %Lymphocytes 11.8 % (21.0-51.0); %Monocytes 7.3 % (0.0-10.0); Hemoglobin 16.2 g/dL (14.0-18.0); Mean Corpuscular HGB CONC 34.7 g/dL (32.0-36.0); Mean Corpuscular Hemoglobin 29.1 pg (27.0-31.0); Mean Corpuscular Volume 84.1 fL (78.0-98.0); Mean Platelet Volume 7.9 fL (7.4-10.4); Platelet Count 276 thou/uL (130-400); RBC Distribution Width 12.6 % (11.5-14.5); Red Blood Cell (RBC) Count 5.57 mill/uL (4.70-6.10); White Blood Cell (WBC) Count 13.5 thou/uL (4.8-10.8)
[2020-07-16 10:15] LABS: ALT (SGPT) 19 U/L (8-55); AST (SGOT) 40 U/L (5-34); Albumin 4.3 g/dL (3.5-5.0); Alkaline Phosphatase 79 U/L (40-110); Anion Gap 15 mmol/L (10-20); BUN (Urea Nitrogen) 8 mg/dL (8.9-20.6); Bilirubin, Total 2.5 mg/dL (0.2-1.2); CK (CPK) 64 U/L (30-200); Calc. Creatinine Clearance 0 mL/min (70-130); Calcium 9.4 mg/dL (7.8-10.44); Carbon Dioxide 23 mmol/L (22-29); Chloride 104 mmol/L (98-107); Globulin 2.8 g/dL (2.4-3.5); Glucose 96 mg/dL (70-105); Potassium 3.6 mmol/L (3.5-5.1); Protein, Total 7.1 g/dL (6.0-8.3); Sodium 138 mmol/L (136-145)
[2020-07-16 10:28] LABS: Lipase 1414 U/L (8-78)
[2020-07-16] MEDS ORDERED: Ondansetron PF 4 MG/2 ML Vial IVP PRN (10:30)
[2020-07-16] MEDS ORDERED: Ondansetron ODT 4 MG TAB SL PRN (10:30)
[2020-07-16] MEDS ORDERED: D5 1/2 NS w/20 mEq KCL 1,000 ML IV SCH (10:30)
[2020-07-16 14:04] VITALS: BMI 21.4
[2020-07-16] MEDS: Morphine 4 MG/ML VIAL SLOW IVP PRN ×2 (14:40→16:40)
[2020-07-16] MEDS: D5 1/2 NS w/20 mEq KCL 1,000 ML IV SCH ×6 (16:02→23:20)
[2020-07-16] MEDS ORDERED: Naloxone HCl 0.4 mg/ml Vial IV PRN (16:30)
[2020-07-16] MEDS: HYDROmorphone 10 mg/100 ml CADD IVPB PRN (17:19)
[2020-07-16] MEDS ORDERED: Ondansetron PF 4 MG/2 ML Vial SLOW IVP PRN (18:23)
[2020-07-16 22:41] LABS: SARS-CoV-2 PCR by NAA Not Detected (NotDetected)
[2020-07-16] MEDS ORDERED: Promethazine HCl 25 MG/ML VIAL IM SCH ×2 (23:00→23:30)
[2020-07-17] MEDS: D5 1/2 NS w/20 mEq KCL 1,000 ML IV SCH ×4 (02:15→23:40)
[2020-07-17 06:48] LABS: #Eosinphils 0.6 thou/uL (0.0-0.7); #Lymphocytes 1.4 thou/uL (1.20-3.40); #Monocytes 0.8 thou/uL (0.11-0.59); #Neutrophils 5.5 thou/uL (1.40-6.50); %Basophils 0.1 % (0.0-1.0); %Eosinophils 7.7 % (0.0-10.0); %Lymphocytes 16.7 % (21.0-51.0); %Monocytes 9.5 % (0.0-10.0); %Neutrophils 65.9 % (42.0-75.0); Hemoglobin 13.1 g/dL (14.0-18.0); Mean Corpuscular HGB CONC 34.1 g/dL (32.0-36.0); Mean Corpuscular Hemoglobin 29.6 pg (27.0-31.0); Mean Corpuscular Volume 86.7 fL (78.0-98.0); Mean Platelet Volume 8.3 fL (7.4-10.4); Platelet Count 220 thou/uL (130-400); RBC Distribution Width 12.5 % (11.5-14.5); Red Blood Cell (RBC) Count 4.45 mill/uL (4.70-6.10); White Blood Cell (WBC) Count 8.3 thou/uL (4.8-10.8)
[2020-07-17 07:02] LABS: ALT (SGPT) 16 U/L (8-55); AST (SGOT) 21 U/L (5-34); Albumin 3.6 g/dL (3.5-5.0); Alkaline Phosphatase 62 U/L (40-110); Anion Gap 9 mmol/L (10-20); BUN (Urea Nitrogen) Less than 4 mg/dL (8.9-20.6); Bilirubin, Direct 0.6 mg/dL (0.1-0.3); Bilirubin, Total 1.5 mg/dL (0.2-1.2); Calc. Creatinine Clearance 136 mL/min (70-130); Calcium 8.7 mg/dL (7.8-10.44); Carbon Dioxide 26 mmol/L (22-29); Chloride 106 mmol/L (98-107); Globulin 2.4 g/dL (2.4-3.5); Glucose 105 mg/dL (70-105); Lipase 376 U/L (8-78); Potassium 4.2 mmol/L (3.5-5.1); Sodium 137 mmol/L (136-145)
[2020-07-17] MEDS ORDERED: Promethazine HCl 25 MG/ML VIAL IM PRN (08:21)
[2020-07-17] MEDS ORDERED: diphenhydrAMINE 50 MG/ML VIAL IVP PRN (08:21)
[2020-07-17] MEDS: Promethazine 25 MG TAB PO PRN (12:58)
[2020-07-17] MEDS: HYDROmorphone 10 mg/100 ml CADD IVPB PRN (15:29)
[2020-07-18] MEDS: D5 1/2 NS w/20 mEq KCL 1,000 ML IV SCH ×5 (06:37→20:44)
[2020-07-18] MEDS: Promethazine 25 MG TAB PO PRN (06:47)
[2020-07-18] MEDS: HYDROmorphone 10 mg/100 ml CADD IVPB PRN (07:28)
[2020-07-19] MEDS: HYDROmorphone 10 mg/100 ml CADD IVPB PRN (00:02)
[2020-07-19] MEDS: D5 1/2 NS w/20 mEq KCL 1,000 ML IV SCH ×4 (03:36→18:19)
[2020-07-19] MEDS ORDERED: HYDROcodone/Acetaminophen 5/325 mg Tablet PO PRN (07:26)
[2020-07-19 07:35] LABS: ALT (SGPT) 18 U/L (8-55); AST (SGOT) 32 U/L (5-34); Albumin 3.6 g/dL (3.5-5.0); Alkaline Phosphatase 61 U/L (40-110); Anion Gap 11 mmol/L (10-20); BUN (Urea Nitrogen) Less than 4 mg/dL (8.9-20.6); Bilirubin, Total 1.4 mg/dL (0.2-1.2); Calc. Creatinine Clearance 141 mL/min (70-130); Calcium 8.8 mg/dL (7.8-10.44); Carbon Dioxide 30 mmol/L (22-29); Chloride 101 mmol/L (98-107); Globulin 2.7 g/dL (2.4-3.5); Glucose 101 mg/dL (70-105); Lipase 168 U/L (8-78); Potassium 4.1 mmol/L (3.5-5.1); Protein, Total 6.3 g/dL (6.0-8.3); Sodium 138 mmol/L (136-145)
[2020-07-19] MEDS: Famotidine 20 MG TAB PO SCH (09:44)
[2020-07-19] MEDS ORDERED: Acetaminophen/Codeine 30-300mg Tablet PO PRN (13:31)
[2020-07-19] MEDS: Acetaminophen/Codeine 30-300mg Tablet PO PRN ×3 (15:22→23:48)
[2020-07-20] MEDS: D5 1/2 NS w/20 mEq KCL 1,000 ML IV SCH (03:09)
[2020-07-20 07:49] VITALS: BP 122/79; TEMP 97.7
[2020-07-20] MEDS: Acetaminophen/Codeine 30-300mg Tablet PO PRN (09:31)
[2020-07-20] MEDS: Famotidine 20 MG TAB PO SCH (09:31)
== END 2020-07-20 09:48 | disposition home or self-care (01) | DRG 439 ==
LOC: ERS 08:56 → T4-B 11:19
PROVIDERS: ADMIT Specialist; ATTEND Specialist
DX: K85.90 Acute pancreatitis without necrosis or infection, unspecified (principal); K86.3 Pseudocyst of pancreas; Z20.822 Contact with and (suspected) exposure to COVID-19; K86.1 Other chronic pancreatitis; F32.9 Major depressive disorder, single episode, unspecified; E86.0 Dehydration; Z79.899 Other long term (current) drug therapy
CPT/HCPCS: 36415; 74181; 80053; 82248; 82550; 82977; 83690; 85025; 87635; 96374; 96375; 96376; J1200; J2270; J2405; J2550; J3480; Q0169; U0003; U0005